=== PATIENT | female | born 1965 | race Caucasian/White ===

== ENCOUNTER 2019-06-11 12:42 | Emergency (ER) | payer OTHER ==
[~2019-06-11] VITALS: Ht 165.1 cm; Wt 60.0 kg
[~2019-06-11 12:42] MED LIST: ALBU8.5H4 IH; CARV3.122 PO; CYCL-1 PO; CYCL-394 PO; LOSA50TA64 PO; SPIR25TA5 PO
[2019-06-11 12:47] VITALS: BP 135/76
[2019-06-11 13:30] LABS: BASOPHILS # (AUTO) 0.1 X10'3 (0-0.2); EOSINOPHILS # (AUTO) 0.1 X10'3 (0-0.9); HEMOGLOBIN 14.6 g/dl (12.0-16.0); WHITE BLOOD COUNT 6.1 X10'3 (4.5-11.0)
[2019-06-11 13:32] LABS: BASOPHILS % (AUTO) 1.4 % (0-1); EOSINOPHILS % (AUTO) 1.7 % (0-6); HEMATOCRIT 43.2 % (35.0-45.0); LYMPHOCYTES # (AUTO) 1.9 X10'3 (1.1-4.8); LYMPHOCYTES % (AUTO) 30.9 % (21-51); MEAN CORPUSCULAR HEMOGLOBIN 32.4 PG (27.0-31.0); MEAN CORPUSCULAR HGB CONC 33.9 g/dL (33.0-36.5); MEAN CORPUSCULAR VOLUME 95.5 FL (78-98); MEAN PLATELET VOLUME 8.1 FL (7.4-10.4); MONOCYTES # (AUTO) 0.7 X10'3 (0-0.9); MONOCYTES % (AUTO) 10.8 % (2-12); NEUTROPHILS # (AUTO) 3.3 X10'3 (1.8-7.7); NEUTROPHILS % (AUTO) 55.2 % (42-75); PLATELET COUNT 326 X10'3 (140-440); RED BLOOD COUNT 4.52 X10'6 (4.20-5.60); RED CELL DISTRIBUTION WIDTH 11.9 % (11.5-14.5)
[2019-06-11 13:53] LABS: ALANINE AMINOTRANSFERASE 80 U/L (12-78); ALBUMIN 3.5 G/DL (3.4-5.0); ALBUMIN/GLOBULIN RATIO 0.8 (1.1-1.5); ALKALINE PHOSPHATASE 101 IU/L (46-116); ANION GAP 7 (8-16); ASPARTATE AMINO TRANSFERASE 65 U/L (10-37); BILIRUBIN,TOTAL 0.5 MG/DL (0.1-1.0); BLOOD UREA NITROGEN 7 MG/DL (7-18); BUN/CREATININE RATIO 10.9 (6.6-38.0); CALCIUM 9.2 MG/DL (8.5-10.1); CHLORIDE 98 MMOL/L (99-107); CREATININE 0.64 MG/DL (0.40-0.90); GLUCOSE 100 MG/DL (70-104); POTASSIUM 3.7 MMOL/L (3.5-5.1); SODIUM 140 MMOL/L (135-145); TOTAL CARBON DIOXIDE 35.1 MMOL/L (24-32); TOTAL PROTEIN 7.7 G/DL (6.4-8.2); eGFR > 90 ML/MIN
[2019-06-11 14:11] LABS: BANDS% (MANUAL) 3 % (0-10); EOSINOPHILS % (MANUAL) 2 % (0-6); IMMATURE CELLS 1 % (0-0); LYMPHOCYTES % (MANUAL) 32 % (21-51); MONOCYTES % (MANUAL) 7 % (2-12); MYELOCYTES % (MANUAL) 1 % (0-0); NEUTROPHILS % (MANUAL) 50 % (42-75); PLATELET ESTIMATE NORMAL; POLYCHROMASIA FEW; STOMATOCYTES 1+; TOTAL CELLS COUNTED 100
[2019-06-11 14:13] LABS: REACTIVE LYMPHOCYTES % 4 % (0-0)
[2019-06-11] MEDS ORDERED: ipratropium/albuterol 3ml nebule NEB ONE (14:50)
[2019-06-11] MEDS ORDERED: predniSONE 20 mg tablet PO ONE (14:50)
[2019-06-11] MEDS ORDERED: LEVO750T21 PO (15:37)
[2019-06-11] MEDS ORDERED: PRED20TA PO (15:37)
[2019-06-11] MEDS ORDERED: benzonatate 100mg capsule PO ONE (15:40)
== END 2019-06-11 15:53 | disposition home or self-care (01) ==
LOC: ER 12:43
DX: J45.909 Unspecified asthma, uncomplicated (principal); R19.7 Diarrhea, unspecified; R42 Dizziness and giddiness; I11.0 Hypertensive heart disease with heart failure; I50.9 Heart failure, unspecified; E78.00 Pure hypercholesterolemia, unspecified; G89.29 Other chronic pain; M79.7 Fibromyalgia; M19.90 Unspecified osteoarthritis, unspecified site; F17.200 Nicotine dependence, unspecified, uncomplicated; F12.90 Cannabis use, unspecified, uncomplicated; Z88.0 Allergy status to penicillin; Z88.1 Allergy status to other antibiotic agents; Z88.8 Allergy status to other drugs, medicaments and biological substances; Z79.899 Other long term (current) drug therapy; Z79.2 Long term (current) use of antibiotics; Z90.710 Acquired absence of both cervix and uterus; Z98.51 Tubal ligation status; Z98.890 Other specified postprocedural states
CPT/HCPCS: 36415; 71046; 80053; 83605; 83880; 84484; 85025; 87040; 87077; 94640; 99284; 99406; J7512; 93005; 94760

== ENCOUNTER 2019-06-23 08:19 | Emergency (ER) | payer OTHER ==
[~2019-06-23] VITALS: Ht 165.1 cm; Wt 61.0 kg
[2019-06-23] MEDS ORDERED: GUAI120L55 PO (09:19)
[2019-06-23] MEDS ORDERED: PRED20TA PO (09:19)
[2019-06-23 09:33] VITALS: BP 136/63
== END 2019-06-23 09:34 | disposition home or self-care (01) ==
LOC: ER 08:19
DX: J44.1 Chronic obstructive pulmonary disease with (acute) exacerbation (principal); I11.0 Hypertensive heart disease with heart failure; I50.9 Heart failure, unspecified; E78.00 Pure hypercholesterolemia, unspecified; G89.29 Other chronic pain; M79.7 Fibromyalgia; M19.90 Unspecified osteoarthritis, unspecified site; F10.10 Alcohol abuse, uncomplicated; F12.90 Cannabis use, unspecified, uncomplicated; F17.210 Nicotine dependence, cigarettes, uncomplicated; Z90.710 Acquired absence of both cervix and uterus; Z98.51 Tubal ligation status; Z98.890 Other specified postprocedural states; Z88.0 Allergy status to penicillin; Z88.1 Allergy status to other antibiotic agents; Z88.8 Allergy status to other drugs, medicaments and biological substances; Z79.899 Other long term (current) drug therapy; Y90.9 Presence of alcohol in blood, level not specified
CPT/HCPCS: 99283

== ENCOUNTER 2021-06-27 10:11 | Emergency (ER) | payer OTHER ==
[~2021-06-27] VITALS: Ht 165.1 cm; Wt 72.0 kg
[~2021-06-27 10:11] MED LIST changes: +GUAI120L55 PO
[2021-06-27 10:19] VITALS: BP 138/91
[2021-06-27] MEDS ORDERED: dexamethasone 4mg tablet PO ONE (10:40)
[2021-06-27] MEDS ORDERED: DEXAMETHASONE 6 MG TABLET PO ONE (10:45)
[2021-06-27] MEDS ORDERED: ondansetron/PF 4mg/2ml inj IV ONE (11:20)
[2021-06-27 11:54] LABS: BASOPHILS # (AUTO) 0.1 X10'3 (0-0.2); EOSINOPHILS # (AUTO) 0.2 X10'3 (0-0.9); MONOCYTES # (AUTO) 0.8 X10'3 (0-0.9); MONOCYTES % (AUTO) 10.1 % (2-12); NEUTROPHILS # (AUTO) 4.3 X10'3 (1.8-7.7); NEUTROPHILS % (AUTO) 57.2 % (42-75)
[2021-06-27 11:57] LABS: BASOPHILS % (AUTO) 1.4 % (0-1); EOSINOPHILS % (AUTO) 2.5 % (0-6); HEMATOCRIT 46.5 % (35.0-45.0); HEMOGLOBIN 15.7 g/dl (12.0-16.0); LYMPHOCYTES # (AUTO) 2.2 X10'3 (1.1-4.8); LYMPHOCYTES % (AUTO) 28.8 % (21-51); MEAN CORPUSCULAR HEMOGLOBIN 34.1 PG (27.0-31.0); MEAN CORPUSCULAR HGB CONC 33.7 g/dL (33.0-36.5); MEAN PLATELET VOLUME 8.3 FL (7.4-10.4); PLATELET COUNT 217 X10'3 (140-440); RED CELL DISTRIBUTION WIDTH 13.9 % (11.5-14.5); WHITE BLOOD COUNT 7.6 X10'3 (4.5-11.0)
[2021-06-27 12:16] LABS: ANION GAP 7 (8-16); BLOOD UREA NITROGEN 5 MG/DL (7-18); BUN/CREATININE RATIO 6.9 (6.6-38.0); CHLORIDE 99 MMOL/L (99-107); CREATININE 0.72 MG/DL (0.40-0.90); GLUCOSE 113 MG/DL (70-104); POTASSIUM 3.9 MMOL/L (3.5-5.1); SODIUM 141 MMOL/L (135-145); TOTAL CARBON DIOXIDE 34.8 MMOL/L (24-32)
[2021-06-27 12:17] LABS: ALANINE AMINOTRANSFERASE 157 U/L (12-78); ALBUMIN 3.5 G/DL (3.4-5.0); ALBUMIN/GLOBULIN RATIO 0.8 (1.1-1.5); ALKALINE PHOSPHATASE 170 IU/L (46-116); ASPARTATE AMINO TRANSFERASE 212 U/L (10-37); BILIRUBIN,TOTAL 0.8 MG/DL (0.1-1.0); CALCIUM 8.8 MG/DL (8.5-10.1); TOTAL PROTEIN 7.9 G/DL (6.4-8.2); eGFR 84 ML/MIN
[2021-06-27] MEDS ORDERED: ipratropium/albuterol 3ml nebule NEB ONE (12:30)
[2021-06-27] MEDS ORDERED: PRED20TA PO ×2 (13:06→13:11)
[2021-06-27] MEDS ORDERED: DOXY100C43 PO ×2 (13:06→13:11)
[2021-06-27] MEDS ORDERED: ALBU18HF2 INH ×2 (13:06→13:11)
[2021-06-27] MEDS ORDERED: ONDA4TAB6 PO ×2 (13:10→13:11)
[2021-06-27] MEDS ORDERED: ondansetron/PF 4mg/2ml inj IM ONE (13:15)
[2021-06-27] MEDS ORDERED: iohexol 350MG/ML 100ml bottle IV ONE (14:05)
== END 2021-06-27 16:02 | disposition home or self-care (01) ==
LOC: ER 10:11
DX: J20.9 Acute bronchitis, unspecified (principal); R05.9 Cough, unspecified; R11.2 Nausea with vomiting, unspecified; Z20.822 Contact with and (suspected) exposure to COVID-19; I11.9 Hypertensive heart disease without heart failure; E78.00 Pure hypercholesterolemia, unspecified; J45.909 Unspecified asthma, uncomplicated; M54.9 Dorsalgia, unspecified; F12.10 Cannabis abuse, uncomplicated
CPT/HCPCS: 36415; 71045; 71275; 74177; 80053; 83880; 84484; 85025; 87635; 93005; 94640; 96372; 96374; 99285; C9803; J2405; Q9967; 94760; J8540

== ENCOUNTER 2021-08-14 08:28 | Outpatient (CLI) | payer OTHER ==
[~2021-08-14] VITALS: Ht 165.1 cm; Wt 70.3 kg
[~2021-08-14 08:28] MED LIST changes: +ALBU18HF2 INH; +DOXY100C43 PO; +ONDA4TAB6 PO; +PRED20TA PO
[2021-08-14] MEDS ORDERED: albuterol 2.5 MG/3 ML nebule NEB PRN (09:20)
== END 2021-08-14 23:59 | disposition home or self-care (01) ==
LOC: RT 08:28
PROVIDERS: ATTEND Family Medicine
DX: J44.9 Chronic obstructive pulmonary disease, unspecified (principal); R06.2 Wheezing; F17.210 Nicotine dependence, cigarettes, uncomplicated; Z79.899 Other long term (current) drug therapy
CPT/HCPCS: 94060; 94760

== ENCOUNTER 2021-08-25 08:28 | Day surgery (SDC) | payer OTHER ==
[2021-08-25] VITALS (8 sets, daily range): BP systolic 119–137; BP diastolic 52–85
[~2021-08-25] VITALS: Ht 166.4 cm; Wt 61.4 kg
[~2021-08-25 08:28] MED LIST changes: +MIDAZolam 1 MG/ML 5ML VIAL ONE; +diphenhydrAMINE 50 mg/ml inj ONE; +fentaNYL/PF 50MCG/1 ML 2ML syringe ONE
[2021-08-25] MEDS ORDERED: CARV25TA2 PO (09:25)
[2021-08-25] MEDS ORDERED: ALBU8HFA PO (09:25)
[2021-08-25] MEDS ORDERED: ONDA-103 PO (09:25)
[2021-08-25] MEDS ORDERED: DESV25TA2 PO (09:25)
[2021-08-25] MEDS ORDERED: HYOS-27 PO (09:25)
[2021-08-25] MEDS ORDERED: LOVA20TA2 PO (09:25)
[2021-08-25] MEDS ORDERED: IPRA3AMP31 PO (09:25)
[2021-08-25] MEDS ORDERED: TRAZ-251 PO (09:25)
[2021-08-25] MEDS ORDERED: FLUT1BLS16 INH (09:25)
[2021-08-25] MEDS ORDERED: PANT40TA54 PO (09:25)
[2021-08-25] MEDS ORDERED: BUDE10.7 (09:25)
== END 2021-08-25 11:55 | disposition home or self-care (01) ==
LOC: GI LAB 08:28
PROVIDERS: ATTEND Internal Medicine Gastroenterology
DX: R19.5 Other fecal abnormalities (principal); R19.7 Diarrhea, unspecified; K57.30 Diverticulosis of large intestine without perforation or abscess without bleeding
CPT/HCPCS: 45380; 99152; J1200; J2250; J3010; J7040; Z7512; A4620

== ENCOUNTER 2021-09-06 11:14 | Inpatient (IN) | payer OTHER ==
[~2021-09-06] VITALS: Ht 165.1 cm; Wt 77.5 kg
[~2021-09-06 11:14] MED LIST changes: -ALBU18HF2 INH; -ALBU8.5H4 IH; +ALBU8HFA PO; +BUDE10.7 PO; +CARV25TA2 PO; -CARV3.122 PO; -CYCL-1 PO; -CYCL-394 PO; +DESV25TA2 PO; -DOXY100C43 PO; +FLUT1BLS16 INH; -GUAI120L55 PO; +HYOS-27 PO; +IPRA3AMP31 PO; -LOSA50TA64 PO; +LOVA20TA2 PO; -MIDAZolam 1 MG/ML 5ML VIAL ONE; +ONDA-103 PO; -ONDA4TAB6 PO; +PANT40TA54 PO; -PRED20TA PO; -SPIR25TA5 PO; +TRAZ-251 PO; +atropine 0.1mg/ml 10ml syringe ONE; -diphenhydrAMINE 50 mg/ml inj ONE; +epiNEPHrine 0.1mg/ml 10ml syringe ONE; -fentaNYL/PF 50MCG/1 ML 2ML syringe ONE
[2021-09-06] MEDS ORDERED: normal saline 1000ML IV soln IV ONE (11:25)
[2021-09-06 12:03] LABS: BASOPHILS # (AUTO) 0.1 X10'3 (0-0.2); BASOPHILS % (AUTO) 0.5 % (0-1); HEMOGLOBIN 13.6 g/dl (12.0-16.0); MEAN PLATELET VOLUME 8.7 FL (7.4-10.4); RED BLOOD COUNT 4.15 X10'6 (4.20-5.60)
[2021-09-06 12:05] LABS: EOSINOPHILS # (AUTO) 0.2 X10'3 (0-0.9); HEMATOCRIT 41.1 % (35.0-45.0); LYMPHOCYTES # (AUTO) 1.7 X10'3 (1.1-4.8); LYMPHOCYTES % (AUTO) 7.3 % (21-51); MEAN CORPUSCULAR HEMOGLOBIN 32.7 PG (27.0-31.0); MEAN CORPUSCULAR HGB CONC 33.1 g/dL (33.0-36.5); MEAN CORPUSCULAR VOLUME 98.8 FL (78-98); MONOCYTES # (AUTO) 0.7 X10'3 (0-0.9); MONOCYTES % (AUTO) 3.1 % (2-12); NEUTROPHILS % (AUTO) 88.1 % (42-75); PLATELET COUNT 353 X10'3 (140-440); RED CELL DISTRIBUTION WIDTH 15.8 % (11.5-14.5); WHITE BLOOD COUNT 23.8 X10'3 (4.5-11.0)
[2021-09-06 12:22] LABS: ALANINE AMINOTRANSFERASE 113 U/L (12-78); ALBUMIN 2.4 G/DL (3.4-5.0); ALBUMIN/GLOBULIN RATIO 0.7 (1.1-1.5); ALKALINE PHOSPHATASE 284 IU/L (46-116); ANION GAP 15 (8-16); ASPARTATE AMINO TRANSFERASE 260 U/L (10-37); BILIRUBIN,TOTAL 2.3 MG/DL (0.1-1.0); BLOOD UREA NITROGEN 12 MG/DL (7-18); BUN/CREATININE RATIO 18.5 (6.6-38.0); CALCIUM 6.2 MG/DL (8.5-10.1); CHLORIDE 106 MMOL/L (99-107); CREATININE 0.65 MG/DL (0.40-0.90); ETHANOL < 0.010 GM/DL (0.0-0.010); GLUCOSE 114 MG/DL (70-104); SODIUM 152 MMOL/L (135-145); TOTAL CARBON DIOXIDE 31.5 MMOL/L (24-32); TOTAL PROTEIN 5.8 G/DL (6.4-8.2); eGFR > 90 ML/MIN
[2021-09-06] MEDS ORDERED: potassium Cl 10 mEq/100mL bag IV ONE (12:30)
[2021-09-06 12:33] LABS: CLARITY,URINE CLOUDY (Clear)
[2021-09-06 12:39] LABS: UA COLLECTION TYPE STRAIGHT CATH
[2021-09-06 12:40] LABS: COLOR,URINE AMBER (Yellow)
[2021-09-06 12:44] LABS: BACTERIA,URINE 4+ /HPF (Neg); WBC,URINE TNTC /HPF (0-4)
[2021-09-06 12:45] LABS: MUCUS STRANDS NONE SEEN /LPF (Neg); SQUAMOUS EPITHELIAL CELL,UR MANY /LPF (FEW); WBC CLUMPS,URINE MANY /HPF (NEGATIVE)
[2021-09-06] MEDS ORDERED: CefTRIAXone 2gm/D5W 50ml BAG 50 ML IV ONE (12:50)
--- NOTE | 2021-09-06 12:50 | NUR ---
PT NEGATIVE FOR COVID NOTIFIED THE FAMILY ,DAUGHTER ALLOWED TO COME SEE THE PT .
[2021-09-06 12:53] LABS: URINE AMPHETAMINE SCREEN NEGATIVE (Neg); URINE BARBITUATE SCREEN NEGATIVE (Neg); URINE BENZODIAZEPINES SCREEN POSITIVE (Neg); URINE CANNABINOID SCREEN NEGATIVE (Neg); URINE COCAINE SCREEN NEGATIVE (Neg); URINE METHADONE SCREEN NEGATIVE (Neg); URINE OPIATE SCREEN NEGATIVE (Neg); URINE PHENCYCLIDINE SCREEN NEGATIVE (Neg)
--- NOTE | 2021-09-06 13:04 | NUR ---
TO CT SCAN.
[2021-09-06] MEDS ORDERED: potassium Cl 20 mEq SR tablet PO STA (13:44)
[2021-09-06] MEDS ORDERED: lactulose 20gm/30ml cup PO ONE (13:45)
[2021-09-06] MEDS ORDERED: NITR0.4T48 SL (14:03)
[2021-09-06] MEDS ORDERED: ipratropium/albuterol 3ml nebule NEB PRN (14:30)
[2021-09-06] MEDS ORDERED: potassium Cl 20 mEq SR tablet PO PRN (14:35)
[2021-09-06] MEDS ORDERED: mag hydrox/Alum hydrox/simeth 30ml oral suspension PO PRN (14:35)
[2021-09-06] MEDS ORDERED: magnesium 4gm in 100ml NS 100 ML IV PRN (14:35)
[2021-09-06] MEDS ORDERED: magnesium hydroxide 30ml (MOM) UD suspension PO PRN (14:35)
[2021-09-06] MEDS ORDERED: ondansetron/PF 4mg/2ml inj IV PRN (14:35)
[2021-09-06] MEDS ORDERED: bisacodyl 10mg suppository rectal RC PRN (14:35)
[2021-09-06] MEDS ORDERED: morphine 2 MG/ML inj. syringe IV PRN (14:35)
[2021-09-06] MEDS ORDERED: acetaminophen 325mg tablet PO PRN (14:35)
[2021-09-06] MEDS ORDERED: haloperidol lactate 5mg/ml inj IM PRN (14:35)
[2021-09-06] MEDS ORDERED: LORazepam 2 mg/ml vial IV PRN (14:35)
[2021-09-06] MEDS ORDERED: diphenhydrAMINE 25mg capsule PO PRN (14:35)
[2021-09-06] MEDS ORDERED: dextrose 50%-water 50ml dispensing syringe IV PRN (14:35)
[2021-09-06] MEDS ORDERED: HYDROcodone/acetaminophen 5mg/325mg tablet PO PRN (14:35)
[2021-09-06] MEDS ORDERED: HYDROcodone/acetaminophen 10/325mg tab PO PRN (14:35)
[2021-09-06] MEDS ORDERED: acetaminophen 650mg rectal suppository RC PRN (14:35)
[2021-09-06] MEDS ORDERED: vancomycin/NS 1 GM ADD-VANTAGE 250 ML IV ONE (15:00)
[2021-09-06 15:22] LABS: HEMOGLOBIN A1C 6.2 % (4.5-6.2)
[2021-09-06] MEDS: metroNIDAZOLE-Flagyl 500mg/NS 100 ML IV SCH (16:05)
[2021-09-06] MEDS: normal saline 1000ml 1,000 ML IV SCH ×2 (16:05→19:51)
[2021-09-06 17:48] VITALS: BP 152/73
--- NOTE | 2021-09-06 18:45 | NUR ---
Received pt in bed awake and alert. Pt is confused and feel frustrated. at bedside trying to reorient pt. Bilateral upper extremities are shaking . Plan of care verbalized to pt and family. Head of bed elevated .
--- NOTE | 2021-09-06 19:10 | NUR ---
Charge nurse made aware of pt condition and I let her know that the pt should not have been admitted on this floor.
--- NOTE | 2021-09-06 19:30 | NUR ---
went home, pt was not able to give information for the admissions intervention. Scheduled medication given.
[2021-09-06] MEDS: docusate sod 100mg capsule PO SCH (19:39)
[2021-09-06] MEDS: heparin, porcine 5000 units/ml vial SQ SCH (19:44)
[2021-09-06] MEDS: lactulose 20gm/30ml cup PO SCH (19:44)
[2021-09-06 20:27] LABS: LIPASE 318 U/L (73-393); MAGNESIUM 1.4 MG/DL (1.5-2.4)
--- NOTE | 2021-09-06 20:28 | NUR ---
Pt off the floor to CT, muscle weakness with shakiness on hand and feet noted. pt has no coordination and unable to grasp on.
[2021-09-06 20:58] VITALS: BP 131/90
[2021-09-06] MEDS ORDERED: propofol 1000mg/100ml bottle 100 ML IV PRN ×2 (21:05→21:16)
[2021-09-06] MEDS ORDERED: midazolam 100mg in NS 100ml 100 ML IV PRN (21:05)
[2021-09-06 21:15] LABS: ABG BASE EXCESS -11.4 mmol/L (-2.0-2.0); ABG HCO3 18.7 mmol/L (22.0-26.0); ABG OXYGEN SATURATION 98.7 % (94-97); ABG PCO2 (T) 60.6 mmHg (32.0-45.0); ABG PO2 (T) 201.4 mmHg (75.0-100.0); ALLEN'S TEST POSITIVE; FCOHb 0.3 % (0.0-3.9); FMetHb 0.4 % (0.0-1.5); PATIENT TEMPERATURE 37.1; PEEP 5 cm H2O; RESPIRATORY RATE 20 b/min; TIDAL VOLUME 400 mL; TOTAL HEMOGLOBIN 14.2 G/dl (12.0-16.0)
[2021-09-06] MEDS: ipratropium/albuterol 3ml nebule NEB SCH (21:18)
--- NOTE | 2021-09-06 21:20 | NUR ---
Pt transferred to ICU post code.
--- NOTE | 2021-09-06 21:45 | NUR ---
Patient transferred from ER after code blue. Report received from Mary OTT. Patient intubated, wakes up spontaneously and opens eyes but does not follow commands or make purposeful movement. Vitals currently stable, vent settings A/C VC at 60% FIO2, RR 22. Will continue to monitor, waiting for tele doc to round.
[2021-09-06] MEDS: Budesonide/Glycopyr/Formoterol (Breztri Aerosphere Inhaler) IH SCH (21:57)
[2021-09-06] MEDS: K and/or MAG REPLACEMENT MC SCH (21:57)
[2021-09-06 22:00] VITALS: BP 114/91
[2021-09-06 22:20] LABS: BASOPHILS # (AUTO) 0.2 X10'3 (0-0.2); EOSINOPHILS # (AUTO) 0.3 X10'3 (0-0.9); EOSINOPHILS % (AUTO) 1.5 % (0-6); HEMATOCRIT 38.3 % (35.0-45.0); HEMOGLOBIN 12.5 g/dl (12.0-16.0); LYMPHOCYTES # (AUTO) 1.6 X10'3 (1.1-4.8); LYMPHOCYTES % (AUTO) 7.8 % (21-51); MEAN CORPUSCULAR HEMOGLOBIN 33.2 PG (27.0-31.0); MEAN CORPUSCULAR HGB CONC 32.7 g/dL (33.0-36.5); MEAN CORPUSCULAR VOLUME 101.4 FL (78-98); MONOCYTES # (AUTO) 0.7 X10'3 (0-0.9); MONOCYTES % (AUTO) 3.2 % (2-12); NEUTROPHILS # (AUTO) 17.9 X10'3 (1.8-7.7); NEUTROPHILS % (AUTO) 86.5 % (42-75); PLATELET COUNT 325 X10'3 (140-440); RED BLOOD COUNT 3.78 X10'6 (4.20-5.60); RED CELL DISTRIBUTION WIDTH 16.4 % (11.5-14.5); WHITE BLOOD COUNT 20.7 X10'3 (4.5-11.0)
[2021-09-06 22:42] LABS: ANISOCYTOSIS 1+; PLATELET ESTIMATE NORMAL; POLYCHROMASIA FEW; STOMATOCYTES FEW; TOTAL CELLS COUNTED 100
[2021-09-06] MEDS: dexmedetomidine/D5W 100mL 100 ML IV SCH (22:46)
[2021-09-06] MEDS: ringers solution, lacted 1,000 ML IV SCH (22:53)
[2021-09-06] MEDS: thiamine 100mg/ml 2ml inj. IV SCH (22:56)
[2021-09-06 23:00] VITALS: BP 106/66
[2021-09-06 23:11] VITALS: BP 116/77
[2021-09-06 23:21] LABS: ALANINE AMINOTRANSFERASE 108 U/L (12-78); ALBUMIN 2.1 G/DL (3.4-5.0); ALBUMIN/GLOBULIN RATIO 0.6 (1.1-1.5); ALKALINE PHOSPHATASE 289 IU/L (46-116); ANION GAP 18 (8-16); ASPARTATE AMINO TRANSFERASE 279 U/L (10-37); BILIRUBIN,TOTAL 1.6 MG/DL (0.1-1.0); BLOOD UREA NITROGEN 14 MG/DL (7-18); BUN/CREATININE RATIO 13.7 (6.6-38.0); CHLORIDE 115 MMOL/L (99-107); CREATININE 1.02 MG/DL (0.40-0.90); GLUCOSE 157 MG/DL (70-104); POTASSIUM 3.2 MMOL/L (3.5-5.1); SODIUM 154 MMOL/L (135-145); TOTAL CARBON DIOXIDE 21.2 MMOL/L (24-32); TOTAL PROTEIN 5.9 G/DL (6.4-8.2); eGFR 56 ML/MIN
[2021-09-06 23:29] LABS: CALCIUM 5.8 MG/DL (8.5-10.1)
[2021-09-07] VITALS (29 sets, daily range): BP systolic 85–129; BP diastolic 47–96
[2021-09-07] MEDS ORDERED: normal saline 500ml IV soln 500 ML IV ONE (00:50)
[2021-09-07] MEDS: metroNIDAZOLE-Flagyl 500mg/NS 100 ML IV SCH ×3 (00:53→15:08)
[2021-09-07 01:56] LABS: CLARITY,URINE CLOUDY (Clear); COLOR,URINE YELLOW (Yellow); GLUCOSE, URINE 100 mg/dl (Neg); KETONES,URINE 15 mg/dl (Neg); LEUKOCYTE ESTERASE ,URINE MODERATE (Neg); NITRITES, URINE NEGATIVE (Neg); OCCULT BLOOD,URINE LARGE (Neg); PH,URINE 5.5 (4.8-8.0); PROTEIN,URINE 100 mg/dl (Neg)
[2021-09-07] MEDS: potassium CL 10mEq/100ml bag 100 ML IV PRN ×4 (01:59→09:01)
[2021-09-07 02:13] LABS: UA COLLECTION TYPE NON-SPECIFIED
[2021-09-07 02:15] LABS: BACTERIA,URINE FEW /HPF (Neg); SQUAMOUS EPITHELIAL CELL,UR FEW /LPF (FEW)
[2021-09-07 02:16] LABS: RBC,URINE 20-50 /HPF (0-2)
[2021-09-07] MEDS: lactulose 20gm/30ml cup PO SCH ×4 (02:56→19:36)
[2021-09-07] MEDS: VANCOMYCIN 1GM/200ML IVPB 200 ML IV SCH ×2 (02:56→17:13)
[2021-09-07] MEDS: ipratropium/albuterol 3ml nebule NEB SCH ×4 (02:59→20:24)
[2021-09-07 03:16] LABS: ABG BASE EXCESS 1.7 mmol/L (-2.0-2.0); ABG HCO3 25.2 mmol/L (22.0-26.0); ABG OXYGEN SATURATION 98.6 % (94-97); ABG PCO2 (T) 36.9 mmHg (32.0-45.0); ABG PO2 (T) 154.6 mmHg (75.0-100.0); ALLEN'S TEST POSITIVE; FCOHb 0.3 % (0.0-3.9); FMetHb 0.3 % (0.0-1.5); PATIENT TEMPERATURE 37.7; PEEP 5 cm H2O; RESPIRATORY RATE 22 b/min; TIDAL VOLUME 400 mL; TOTAL HEMOGLOBIN 12.4 G/dl (12.0-16.0)
[2021-09-07 05:08] LABS: BASOPHILS # (AUTO) 0.2 X10'3 (0-0.2); EOSINOPHILS # (AUTO) 0.2 X10'3 (0-0.9); EOSINOPHILS % (AUTO) 1.5 % (0-6); HEMATOCRIT 34.5 % (35.0-45.0); HEMOGLOBIN 11.1 g/dl (12.0-16.0); LYMPHOCYTES # (AUTO) 1.9 X10'3 (1.1-4.8); LYMPHOCYTES % (AUTO) 11.9 % (21-51); MEAN CORPUSCULAR HEMOGLOBIN 32.4 PG (27.0-31.0); MEAN CORPUSCULAR HGB CONC 32.1 g/dL (33.0-36.5); MEAN CORPUSCULAR VOLUME 101.1 FL (78-98); MEAN PLATELET VOLUME 10.1 FL (7.4-10.4); MONOCYTES # (AUTO) 0.6 X10'3 (0-0.9); MONOCYTES % (AUTO) 3.6 % (2-12); NEUTROPHILS # (AUTO) 12.8 X10'3 (1.8-7.7); PLATELET COUNT 235 X10'3 (140-440); RED BLOOD COUNT 3.42 X10'6 (4.20-5.60); RED CELL DISTRIBUTION WIDTH 16.7 % (11.5-14.5); WHITE BLOOD COUNT 15.6 X10'3 (4.5-11.0)
[2021-09-07] MEDS: dexmedetomidine/D5W 100mL 100 ML IV SCH (05:50)
--- NOTE | 2021-09-07 06:20 | NUR ---
Problems reprioritized. Patient report given, questions answered & plan of care reviewed with Zulema OTT.
--- NOTE | 2021-09-07 06:38 | NUR ---
Patient in room ICU 2040. I have received report from Jodie OTT and had the opportunity to ask questions and assume patient care.
[2021-09-07] MEDS ORDERED: pantoprazole 40mg Tablet.DR PO SCH (07:30)
[2021-09-07] MEDS: heparin, porcine 5000 units/ml vial SQ SCH ×2 (07:36→19:38)
[2021-09-07] MEDS: DESVENLAFAXINE SUCCINATE PO SCH (07:55)
[2021-09-07] MEDS: docusate sod 100mg capsule PO SCH ×2 (07:55→20:00)
[2021-09-07] MEDS ORDERED: folic acid 1mg/0.2ml inj IV SCH (08:00)
[2021-09-07] MEDS: thiamine 100mg/ml 2ml inj. IV SCH ×3 (08:00→19:38)
[2021-09-07] MEDS ORDERED: atorvastatin 10mg tablet PO SCH (08:00)
[2021-09-07] MEDS: Budesonide/Glycopyr/Formoterol (Breztri Aerosphere Inhaler) IH SCH ×2 (08:00→20:00)
[2021-09-07] MEDS: folic acid 1mg/0.2ml inj IV SCH (08:00)
[2021-09-07] MEDS ORDERED: thiamine 100mg/ml 2ml inj. IM SCH (08:00)
[2021-09-07] MEDS: K and/or MAG REPLACEMENT MC SCH ×2 (08:00→19:38)
[2021-09-07 08:10] LABS: ALANINE AMINOTRANSFERASE 89 U/L (12-78); ALBUMIN 1.9 G/DL (3.4-5.0); ALBUMIN/GLOBULIN RATIO 0.8 (1.1-1.5); ALKALINE PHOSPHATASE 223 IU/L (46-116); ANION GAP 14 (8-16); ASPARTATE AMINO TRANSFERASE 190 U/L (10-37); BILIRUBIN,TOTAL 1.3 MG/DL (0.1-1.0); BLOOD UREA NITROGEN 13 MG/DL (7-18); BUN/CREATININE RATIO 17.1 (6.6-38.0); CHLORIDE 118 MMOL/L (99-107); CHOL/HDL RATIO 8.9 (0.00-4.99); CHOLESTEROL 142 MG/DL (0-200); CREATININE 0.76 MG/DL (0.40-0.90); GLUCOSE 98 MG/DL (70-104); HDL CHOLESTEROL 16 MG/DL (35-60); LDL CHOLESTEROL 91 MG/DL (50-100); MAGNESIUM 1.4 MG/DL (1.5-2.4); PHOSPHORUS 3.3 MG/DL (2.3-4.5); POTASSIUM 3.4 MMOL/L (3.5-5.1); TOTAL CARBON DIOXIDE 26.1 MMOL/L (24-32); TOTAL PROTEIN 4.4 G/DL (6.4-8.2); TRIGLYCERIDES 240 MG/DL (20-135); eGFR 79 ML/MIN
[2021-09-07 08:15] LABS: CALCIUM 5.5 MG/DL (8.5-10.1); SODIUM 158 MMOL/L (135-145)
[2021-09-07] MEDS: ringers solution, lacted 1,000 ML IV SCH ×4 (08:15→20:42)
[2021-09-07] MEDS ORDERED: dextrose 5%-1/2 normal saline 1,000 ML IV SCH (09:25)
[2021-09-07] MEDS ORDERED: ringers solution, lacted 1,000 ML IV ONE (10:20)
[2021-09-07] MEDS: CefTRIAXone/D5W-Rocephin 1gm 50 ML IV SCH (10:32)
[2021-09-07] MEDS ORDERED: CALCIUM GLUC 1gm/50ml NACL,iso 100 ML IV ONE (11:35)
[2021-09-07 12:16] LABS: HIV ANTIBODY 1&2 RAPID NON-REACTIVE (Neg)
--- NOTE | 2021-09-07 12:26 | NUR ---
Initial: Pt admit dx encephalopathy, sepsis, UTI, colitis, and hyperlipidemia per EMR. PO intake 25% of one heart healthy meal. Pt s/p cardiac arrest and intubated 09/06. Pt to be extubated 09/07 per MD order. Recommend continue on heart healthy diet post-extubation, pending further PO trends. Noted Vinny score of 11. Pt w/ open skin to coccyx per RN skin assessment, WOC pending. LBM 09/06, receiving routine bowel care. Will continue to monitor. Recommendations: 1. Continue heart healthy diet as tolerated, pending extubation 2. Encourage PO intake, monitor need for additional protein/ONS 3. Routine bowel care 4. Weekly scaled wt Addendum: 09/07/21 at [address] Amended: Links added. Addendum: 09/07/21 at [address] I have reviewed assessment by architect internship
[2021-09-07] MEDS: pantoprazole 40MG/NS 100ML BAG 100 ML IV SCH ×2 (13:42→19:37)
[2021-09-07] MEDS: magnesium Cl slow-release 64mg tablet PO PRN ×2 (14:39→19:41)
--- NOTE | 2021-09-07 15:13 | NUR ---
and daughter at bedside, gave rings that were taken off pt to Franky to take home. Pt and daughter aware.
--- NOTE | 2021-09-07 17:06 | NUR ---
Student Medication Administration: For this medication-pass time frame, all medication were reviewed, dispensed, administered and documented per hospital policy by Angelica Student Nurse. Student documentation: I have reviewed and agree with all interventions, assessments performed and documented by [facility] Student Nurse.
--- NOTE | 2021-09-07 18:20 | NUR ---
Patient in room ICU 2040. I have received report from Zulema OTT and had the opportunity to ask questions and assume patient care.
--- NOTE | 2021-09-07 18:27 | NUR ---
Problems reprioritized. Patient report given, questions answered & plan of care reviewed with Jodie OTT.
[2021-09-07] MEDS: acetaminophen 325mg tablet PO PRN (19:36)
[2021-09-08] VITALS (23 sets, daily range): BP systolic 99–148; BP diastolic 51–94
[2021-09-08] MEDS: metroNIDAZOLE-Flagyl 500mg/NS 100 ML IV SCH ×4 (00:08→23:22)
[2021-09-08] MEDS: dexmedetomidine/D5W 100mL 100 ML IV SCH ×3 (00:27→23:21)
[2021-09-08] MEDS: lactulose 20gm/30ml cup PO SCH ×4 (01:44→20:39)
[2021-09-08] MEDS: LORazepam 2 mg/ml vial IV PRN ×3 (01:49→20:36)
[2021-09-08] MEDS ORDERED: VANCOMYCIN LEVEL IV ONE (02:30)
[2021-09-08] MEDS: mineral oil/petrolatum ophthal oint EACHEYE SCH ×5 (03:19→20:40)
[2021-09-08] MEDS: VANCOMYCIN 1GM/200ML IVPB 200 ML IV SCH (03:43)
[2021-09-08 03:50] LABS: BASOPHILS % (AUTO) 0.1 % (0-1); EOSINOPHILS # (AUTO) 0.5 X10'3 (0-0.9); EOSINOPHILS % (AUTO) 2.6 % (0-6); HEMATOCRIT 33.6 % (35.0-45.0); LYMPHOCYTES # (AUTO) 2.1 X10'3 (1.1-4.8); LYMPHOCYTES % (AUTO) 11.9 % (21-51); MEAN CORPUSCULAR HEMOGLOBIN 32.8 PG (27.0-31.0); MEAN CORPUSCULAR HGB CONC 32.7 g/dL (33.0-36.5); MEAN CORPUSCULAR VOLUME 100.2 FL (78-98); MEAN PLATELET VOLUME 9.6 FL (7.4-10.4); MONOCYTES # (AUTO) 0.8 X10'3 (0-0.9); MONOCYTES % (AUTO) 4.3 % (2-12); NEUTROPHILS # (AUTO) 14.4 X10'3 (1.8-7.7); NEUTROPHILS % (AUTO) 81.1 % (42-75); PLATELET COUNT 255 X10'3 (140-440); RED BLOOD COUNT 3.36 X10'6 (4.20-5.60); RED CELL DISTRIBUTION WIDTH 16.1 % (11.5-14.5); WHITE BLOOD COUNT 17.8 X10'3 (4.5-11.0)
[2021-09-08 04:00] LABS: ALANINE AMINOTRANSFERASE 63 U/L (12-78); ALBUMIN 1.9 G/DL (3.4-5.0); ALBUMIN/GLOBULIN RATIO 0.7 (1.1-1.5); ALKALINE PHOSPHATASE 240 IU/L (46-116); ANION GAP 10 (8-16); ASPARTATE AMINO TRANSFERASE 131 U/L (10-37); BILIRUBIN,TOTAL 0.9 MG/DL (0.1-1.0); BLOOD UREA NITROGEN 9 MG/DL (7-18); BUN/CREATININE RATIO 11.1 (6.6-38.0); CALCIUM 6.2 MG/DL (8.5-10.1); CHLORIDE 119 MMOL/L (99-107); CREATININE 0.81 MG/DL (0.40-0.90); GLUCOSE 117 MG/DL (70-104); MAGNESIUM 1.1 MG/DL (1.5-2.4); SODIUM 154 MMOL/L (135-145); TOTAL CARBON DIOXIDE 25.4 MMOL/L (24-32); TOTAL PROTEIN 4.5 G/DL (6.4-8.2); eGFR 74 ML/MIN
[2021-09-08] MEDS: ipratropium/albuterol 3ml nebule NEB SCH ×4 (04:08→19:32)
[2021-09-08] MEDS: potassium Cl 20 mEq SR tablet PO PRN ×2 (04:58→15:29)
[2021-09-08] MEDS: magnesium Cl slow-release 64mg tablet PO PRN (04:58)
[2021-09-08] MEDS: haloperidol 5mg tablet PO PRN ×2 (04:58→21:28)
--- NOTE | 2021-09-08 06:31 | NUR ---
Problems reprioritized. Patient report given, questions answered & plan of care reviewed with Maira OTT.
[2021-09-08] MEDS: carVEDilol 12.5mg tablet PO SCH ×2 (07:30→16:50)
[2021-09-08] MEDS: Budesonide/Glycopyr/Formoterol (Breztri Aerosphere Inhaler) IH SCH ×2 (07:50→19:33)
[2021-09-08] MEDS: DESVENLAFAXINE SUCCINATE PO SCH (07:51)
[2021-09-08] MEDS: ringers solution, lacted 1,000 ML IV SCH ×2 (07:58→18:08)
[2021-09-08] MEDS: K and/or MAG REPLACEMENT MC SCH ×2 (08:00→20:00)
[2021-09-08] MEDS: folic acid 1mg/0.2ml inj IV SCH (08:00)
[2021-09-08] MEDS: pantoprazole 40MG/NS 100ML BAG 100 ML IV SCH ×2 (08:23→20:40)
[2021-09-08] MEDS: CefTRIAXone/D5W-Rocephin 1gm 50 ML IV SCH (08:23)
[2021-09-08] MEDS: heparin, porcine 5000 units/ml vial SQ SCH ×2 (08:24→20:39)
[2021-09-08] MEDS: thiamine 100mg/ml 2ml inj. IV SCH ×3 (08:24→20:39)
[2021-09-08] MEDS: docusate sod 100mg capsule PO SCH ×2 (08:24→20:00)
[2021-09-08] MEDS: potassium CL 10mEq/100ml bag 100 ML IV PRN ×3 (09:58→15:13)
[2021-09-08] MEDS: magnesium 2GM in 50ml NS 50 ML IV PRN (09:59)
[2021-09-08 10:15] LABS: HBSAG SCREEN Negative (Negative); HEP A AB, IGM Negative (Negative); HEPATITIS C ANTIBODY <0.1 s/co ratio (0.0-0.9)
[2021-09-08] MEDS: morphine 2 MG/ML inj. syringe IV PRN (11:29)
[2021-09-08] MEDS ORDERED: potassium phosphate inj 15 MMOL in NS 250ml IV soln 250 ML IV ONE (12:15)
[2021-09-08 14:35] LABS: MAGNESIUM 1.5 MG/DL (1.5-2.4); POTASSIUM 3.1 MMOL/L (3.5-5.1)
[2021-09-08] MEDS ORDERED: LORazepam 1 MG tablet PO PRN (14:35)
[2021-09-08] MEDS ORDERED: VANCOmycin 1250MG/NS 250ml Bag 250 ML IV SCH (15:00)
[2021-09-08 19:48] LABS: BASOPHILS # (AUTO) 0.2 X10'3 (0-0.2); BASOPHILS % (AUTO) 1.3 % (0-1); EOSINOPHILS # (AUTO) 0.4 X10'3 (0-0.9); EOSINOPHILS % (AUTO) 2.4 % (0-6); HEMATOCRIT 33.8 % (35.0-45.0); HEMOGLOBIN 10.9 g/dl (12.0-16.0); LYMPHOCYTES % (AUTO) 11.9 % (21-51); MEAN CORPUSCULAR HEMOGLOBIN 32.7 PG (27.0-31.0); MEAN CORPUSCULAR HGB CONC 32.4 g/dL (33.0-36.5); MEAN CORPUSCULAR VOLUME 100.9 FL (78-98); MEAN PLATELET VOLUME 9.4 FL (7.4-10.4); MONOCYTES # (AUTO) 0.9 X10'3 (0-0.9); MONOCYTES % (AUTO) 5.6 % (2-12); NEUTROPHILS # (AUTO) 13.2 X10'3 (1.8-7.7); NEUTROPHILS % (AUTO) 78.8 % (42-75); PLATELET COUNT 226 X10'3 (140-440); RED BLOOD COUNT 3.35 X10'6 (4.20-5.60); RED CELL DISTRIBUTION WIDTH 16.3 % (11.5-14.5); WHITE BLOOD COUNT 16.7 X10'3 (4.5-11.0)
[2021-09-08 20:03] LABS: ALANINE AMINOTRANSFERASE 61 U/L (12-78); ALBUMIN 1.9 G/DL (3.4-5.0); ALBUMIN/GLOBULIN RATIO 0.8 (1.1-1.5); ALKALINE PHOSPHATASE 249 IU/L (46-116); ANION GAP 10 (8-16); ASPARTATE AMINO TRANSFERASE 104 U/L (10-37); BILIRUBIN,TOTAL 0.9 MG/DL (0.1-1.0); BLOOD UREA NITROGEN 5 MG/DL (7-18); BUN/CREATININE RATIO 6.9 (6.6-38.0); CALCIUM 6.2 MG/DL (8.5-10.1); CHLORIDE 119 MMOL/L (99-107); CREATININE 0.72 MG/DL (0.40-0.90); GLUCOSE 122 MG/DL (70-104); MAGNESIUM 1.5 MG/DL (1.5-2.4); PHOSPHORUS 2.7 MG/DL (2.3-4.5); POTASSIUM 3.8 MMOL/L (3.5-5.1); SODIUM 152 MMOL/L (135-145); TOTAL CARBON DIOXIDE 23.2 MMOL/L (24-32); TOTAL PROTEIN 4.4 G/DL (6.4-8.2); eGFR 84 ML/MIN
[2021-09-09] VITALS (19 sets, daily range): BP systolic 89–142; BP diastolic 52–90
[2021-09-09] MEDS: lactulose 20gm/30ml cup PO SCH ×4 (01:22→20:26)
[2021-09-09] MEDS: mineral oil/petrolatum ophthal oint EACHEYE SCH ×2 (01:22→08:00)
[2021-09-09] MEDS: ringers solution, lacted 1,000 ML IV SCH ×3 (02:05→17:59)
[2021-09-09] MEDS: ipratropium/albuterol 3ml nebule NEB SCH ×4 (03:04→20:03)
[2021-09-09] MEDS: dexmedetomidine/D5W 100mL 100 ML IV SCH (04:22)
[2021-09-09 06:10] LABS: BASOPHILS # (AUTO) 0.2 X10'3 (0-0.2); BASOPHILS % (AUTO) 1.1 % (0-1); EOSINOPHILS # (AUTO) 0.4 X10'3 (0-0.9); HEMATOCRIT 32.8 % (35.0-45.0); HEMOGLOBIN 10.8 g/dl (12.0-16.0); LYMPHOCYTES # (AUTO) 1.8 X10'3 (1.1-4.8); LYMPHOCYTES % (AUTO) 13.3 % (21-51); MEAN CORPUSCULAR HEMOGLOBIN 32.8 PG (27.0-31.0); MEAN CORPUSCULAR HGB CONC 32.9 g/dL (33.0-36.5); MEAN CORPUSCULAR VOLUME 99.7 FL (78-98); MEAN PLATELET VOLUME 9.9 FL (7.4-10.4); MONOCYTES # (AUTO) 0.7 X10'3 (0-0.9); MONOCYTES % (AUTO) 5.5 % (2-12); NEUTROPHILS # (AUTO) 10.3 X10'3 (1.8-7.7); NEUTROPHILS % (AUTO) 77.1 % (42-75); PLATELET COUNT 214 X10'3 (140-440); RED BLOOD COUNT 3.29 X10'6 (4.20-5.60); RED CELL DISTRIBUTION WIDTH 16.2 % (11.5-14.5); WHITE BLOOD COUNT 13.3 X10'3 (4.5-11.0)
--- NOTE | 2021-09-09 06:18 | NUR ---
Problems reprioritized. Patient report given, questions answered & plan of care reviewed with Williams RN
[2021-09-09 06:30] LABS: ALANINE AMINOTRANSFERASE 48 U/L (12-78); ALBUMIN 1.7 G/DL (3.4-5.0); ALBUMIN/GLOBULIN RATIO 0.7 (1.1-1.5); ALKALINE PHOSPHATASE 222 IU/L (46-116); ANION GAP 4 (8-16); ASPARTATE AMINO TRANSFERASE 84 U/L (10-37); BILIRUBIN,TOTAL 0.8 MG/DL (0.1-1.0); BLOOD UREA NITROGEN 5 MG/DL (7-18); BUN/CREATININE RATIO 7.5 (6.6-38.0); CALCIUM 6.1 MG/DL (8.5-10.1); CHLORIDE 119 MMOL/L (99-107); CREATININE 0.67 MG/DL (0.40-0.90); GLUCOSE 124 MG/DL (70-104); MAGNESIUM 1.3 MG/DL (1.5-2.4); PHOSPHORUS 2.5 MG/DL (2.3-4.5); POTASSIUM 3.3 MMOL/L (3.5-5.1); SODIUM 148 MMOL/L (135-145); eGFR > 90 ML/MIN
[2021-09-09] MEDS: potassium CL 10mEq/100ml bag 100 ML IV PRN ×3 (06:45→10:55)
[2021-09-09] MEDS: magnesium 2GM in 50ml NS 50 ML IV PRN ×2 (06:45→08:01)
[2021-09-09] MEDS: morphine 2 MG/ML inj. syringe IV PRN (07:00)
[2021-09-09] MEDS: carVEDilol 12.5mg tablet PO SCH ×3 (07:30→17:30)
[2021-09-09] MEDS: DESVENLAFAXINE SUCCINATE PO SCH (08:00)
[2021-09-09] MEDS: docusate sod 100mg capsule PO SCH ×2 (08:00→20:26)
[2021-09-09] MEDS: heparin, porcine 5000 units/ml vial SQ SCH ×2 (08:00→20:28)
[2021-09-09] MEDS: Budesonide/Glycopyr/Formoterol (Breztri Aerosphere Inhaler) IH SCH (08:00)
[2021-09-09] MEDS: CefTRIAXone/D5W-Rocephin 1gm 50 ML IV SCH (08:01)
[2021-09-09] MEDS: pantoprazole 40MG/NS 100ML BAG 100 ML IV SCH ×2 (08:01→21:16)
[2021-09-09] MEDS: metroNIDAZOLE-Flagyl 500mg/NS 100 ML IV SCH (08:01)
[2021-09-09] MEDS: thiamine 100mg/ml 2ml inj. IV SCH ×2 (08:01→12:45)
[2021-09-09] MEDS: K and/or MAG REPLACEMENT MC SCH ×2 (08:06→20:00)
[2021-09-09] MEDS: folic acid 1mg/0.2ml inj IV SCH (08:11)
--- NOTE | 2021-09-09 09:42 | NUR ---
IV Out IV at left AC was infiltrated. Line d/c'd, tip in tact RN notified.
[2021-09-09] MEDS ORDERED: potassium Cl 20 mEq SR tablet PO ONE (11:05)
[2021-09-09] MEDS: calcium carbonate/vitamin D3 tablet PO SCH ×2 (12:44→17:30)
[2021-09-09] MEDS: chlordiazePOXIDE 25mg capsule PO SCH ×2 (12:45→20:28)
[2021-09-09 13:55] LABS: MAGNESIUM 2.2 MG/DL (1.5-2.4); POTASSIUM 3.9 MMOL/L (3.5-5.1)
--- NOTE | 2021-09-09 16:23 | NUR ---
Patient in room ICU 2040, transferring to 3014A on PCU. I have received report from Williams OTT and had the opportunity to ask questions and assume patient care. Patient will be heading to MRI prior to arriving on floor.
--- NOTE | 2021-09-09 17:34 | NUR ---
Report handed off to RESEARCH PROGRAM MANAGER, questions/concerns answered. Pt and family's questions and concerns answered prior to transfer. All pt belongings accounted for and family took them with.
--- NOTE | 2021-09-09 18:30 | NUR ---
Problems reprioritized. Patient report given, questions answered & plan of care reviewed with Geneva OTT.
--- NOTE | 2021-09-09 18:32 | NUR ---
Patient in room PCU 3014. I have received report from TRU Chawla and had the opportunity to ask questions and assume patient care.
[2021-09-09] MEDS: metroNIDAZOLE 500mg tablet PO SCH (20:28)
[2021-09-10] MEDS: ringers solution, lacted 1,000 ML IV SCH ×3 (02:08→17:50)
[2021-09-10] MEDS: ipratropium/albuterol 3ml nebule NEB SCH ×4 (02:29→22:38)
[2021-09-10] MEDS ORDERED: VANCOMYCIN LEVEL IV ONE (02:30)
[2021-09-10] MEDS: lactulose 20gm/30ml cup PO SCH ×4 (02:33→20:43)
[2021-09-10 03:34] LABS: ALANINE AMINOTRANSFERASE 43 U/L (12-78); ALBUMIN 1.7 G/DL (3.4-5.0); ALBUMIN/GLOBULIN RATIO 0.5 (1.1-1.5); ALKALINE PHOSPHATASE 263 IU/L (46-116); ANION GAP 5 (8-16); ASPARTATE AMINO TRANSFERASE 77 U/L (10-37); BILIRUBIN,TOTAL 0.8 MG/DL (0.1-1.0); BLOOD UREA NITROGEN 5 MG/DL (7-18); BUN/CREATININE RATIO 7.4 (6.6-38.0); CALCIUM 6.4 MG/DL (8.5-10.1); CHLORIDE 117 MMOL/L (99-107); CREATININE 0.68 MG/DL (0.40-0.90); GLUCOSE 104 MG/DL (70-104); MAGNESIUM 1.6 MG/DL (1.5-2.4); PHOSPHORUS 2.6 MG/DL (2.3-4.5); POTASSIUM 3.9 MMOL/L (3.5-5.1); SODIUM 147 MMOL/L (135-145); TOTAL CARBON DIOXIDE 24.8 MMOL/L (24-32); TOTAL PROTEIN 4.9 G/DL (6.4-8.2); VANCOMYCIN,TROUGH 2.9 UG/ML (6.0-14.0); eGFR 90 ML/MIN
[2021-09-10 03:44] LABS: BASOPHILS # (AUTO) 0.3 X10'3 (0-0.2); BASOPHILS % (AUTO) 1.5 % (0-1); EOSINOPHILS # (AUTO) 0.5 X10'3 (0-0.9); EOSINOPHILS % (AUTO) 2.8 % (0-6); HEMATOCRIT 33.4 % (35.0-45.0); HEMOGLOBIN 10.8 g/dl (12.0-16.0); LYMPHOCYTES # (AUTO) 2.2 X10'3 (1.1-4.8); LYMPHOCYTES % (AUTO) 12.6 % (21-51); MEAN CORPUSCULAR HEMOGLOBIN 32.2 PG (27.0-31.0); MEAN CORPUSCULAR HGB CONC 32.4 g/dL (33.0-36.5); MEAN CORPUSCULAR VOLUME 99.6 FL (78-98); MEAN PLATELET VOLUME 10.4 FL (7.4-10.4); MONOCYTES # (AUTO) 1.1 X10'3 (0-0.9); MONOCYTES % (AUTO) 6.2 % (2-12); NEUTROPHILS # (AUTO) 13.2 X10'3 (1.8-7.7); NEUTROPHILS % (AUTO) 76.9 % (42-75); PLATELET COUNT 237 X10'3 (140-440); RED BLOOD COUNT 3.36 X10'6 (4.20-5.60); RED CELL DISTRIBUTION WIDTH 16.4 % (11.5-14.5); WHITE BLOOD COUNT 17.2 X10'3 (4.5-11.0)
[2021-09-10 04:00] VITALS: BP 157/92
[2021-09-10 06:00] VITALS: BP 158/92
--- NOTE | 2021-09-10 06:26 | NUR ---
Problems reprioritized. Patient report given, questions answered & plan of care reviewed with TRU Chawla.
--- NOTE | 2021-09-10 06:30 | NUR ---
Patient in room PCU 3014. I have received report from Geneva OTT and had the opportunity to ask questions and assume patient care.
[2021-09-10] MEDS: DESVENLAFAXINE SUCCINATE PO SCH (08:00)
[2021-09-10] MEDS: K and/or MAG REPLACEMENT MC SCH ×2 (08:00→20:00)
[2021-09-10] MEDS: carVEDilol 12.5mg tablet PO SCH ×2 (08:03→20:44)
[2021-09-10] MEDS: calcium carbonate/vitamin D3 tablet PO SCH ×3 (08:03→20:44)
[2021-09-10] MEDS: thiamine 100mg tablet PO SCH (08:04)
[2021-09-10] MEDS: heparin, porcine 5000 units/ml vial SQ SCH ×2 (08:04→20:44)
[2021-09-10] MEDS: chlordiazePOXIDE 25mg capsule PO SCH ×3 (08:04→20:44)
[2021-09-10] MEDS: metroNIDAZOLE 500mg tablet PO SCH ×3 (08:04→20:44)
[2021-09-10] MEDS: docusate sod 100mg capsule PO SCH ×2 (08:04→20:44)
[2021-09-10] MEDS: pantoprazole 40MG/NS 100ML BAG 100 ML IV SCH ×2 (08:05→20:46)
[2021-09-10] MEDS: CefTRIAXone/D5W-Rocephin 1gm 50 ML IV SCH (08:05)
[2021-09-10 11:00] VITALS: BP 138/77
--- NOTE | 2021-09-10 11:49 | NUR ---
Spoke to pharmacy about Patient own med: desvenlafaxine succinate. We do not carry this medication here, patients is going to bring it in.
--- NOTE | 2021-09-10 12:17 | NUR ---
Reassessment: Pt PO intake ~[facility] of [facility], not meeting estimated nutritional needs. Noted pt continues as A&O x 2 w/ moderate assistance at meals. Pt could benefit from Ensure Enlive TIDWM to help meet kcal/protein needs, if MD agreeable. IF poor PO intake continues, consider nutrition support if medically appropriate and within POC. LBM 3/2, receiving routine bowel care. Will continue to monitor. Recommendations: 1. Continue regular diet as tolerated 2. Ensure Enlive TIDWM, pending MD approval 3. Encourage PO intake 4. Routine bowel care 5. Weekly scaled wt 6. IF poor PO intake continues, consider nutrition support if medically appropriate and within POC Addendum: 09/10/21 at [address] Amended: Links added. Addendum: 09/10/21 at [address] I have reviewed assessment by project internship
[2021-09-10] MEDS ORDERED: LORazepam 2 mg/ml vial IV PRN (14:35)
[2021-09-10] MEDS ORDERED: LORazepam 1 MG tablet PO PRN (14:35)
[2021-09-10 15:00] VITALS: BP 105/69
[2021-09-10] MEDS: nicotine 7mg patch - 24hr TD SCH (15:51)
--- NOTE | 2021-09-10 18:25 | NUR ---
Problems reprioritized. Patient report given, questions answered & plan of care reviewed with Geneva OTT.
[2021-09-10 19:00] VITALS: BP 143/76
[2021-09-10] MEDS: morphine 2 MG/ML inj. syringe IV PRN (20:45)
[2021-09-10 23:00] VITALS: BP 119/81
[2021-09-11] MEDS: ringers solution, lacted 1,000 ML IV SCH ×3 (01:47→18:00)
[2021-09-11] MEDS: ipratropium/albuterol 3ml nebule NEB SCH ×4 (02:34→20:53)
[2021-09-11] MEDS: lactulose 20gm/30ml cup PO SCH ×4 (02:56→19:47)
[2021-09-11 03:00] VITALS: BP 127/74
--- NOTE | 2021-09-11 06:31 | NUR ---
Problems reprioritized. Patient report given, questions answered & plan of care reviewed with TRU Costello.
[2021-09-11 07:13] LABS: BASOPHILS # (AUTO) 0.2 X10'3 (0-0.2); BASOPHILS % (AUTO) 1.1 % (0-1); EOSINOPHILS # (AUTO) 0.4 X10'3 (0-0.9); EOSINOPHILS % (AUTO) 2.1 % (0-6); HEMATOCRIT 32.2 % (35.0-45.0); HEMOGLOBIN 10.5 g/dl (12.0-16.0); LYMPHOCYTES # (AUTO) 2.1 X10'3 (1.1-4.8); LYMPHOCYTES % (AUTO) 10.7 % (21-51); MEAN CORPUSCULAR HEMOGLOBIN 32.6 PG (27.0-31.0); MEAN CORPUSCULAR HGB CONC 32.7 g/dL (33.0-36.5); MEAN CORPUSCULAR VOLUME 99.7 FL (78-98); MEAN PLATELET VOLUME 10.5 FL (7.4-10.4); MONOCYTES # (AUTO) 1.2 X10'3 (0-0.9); NEUTROPHILS # (AUTO) 15.5 X10'3 (1.8-7.7); NEUTROPHILS % (AUTO) 80.1 % (42-75); PLATELET COUNT 235 X10'3 (140-440); RED BLOOD COUNT 3.22 X10'6 (4.20-5.60); RED CELL DISTRIBUTION WIDTH 16.4 % (11.5-14.5); WHITE BLOOD COUNT 19.3 X10'3 (4.5-11.0)
[2021-09-11 07:14] VITALS: BP 117/77
[2021-09-11 07:30] LABS: ALANINE AMINOTRANSFERASE 21 U/L (12-78); ALBUMIN 1.6 G/DL (3.4-5.0); ALBUMIN/GLOBULIN RATIO 0.5 (1.1-1.5); ALKALINE PHOSPHATASE 241 IU/L (46-116); ANION GAP 10 (8-16); ASPARTATE AMINO TRANSFERASE 61 U/L (10-37); BILIRUBIN,TOTAL 0.6 MG/DL (0.1-1.0); BLOOD UREA NITROGEN 4 MG/DL (7-18); BUN/CREATININE RATIO 5.8 (6.6-38.0); CALCIUM 6.8 MG/DL (8.5-10.1); CHLORIDE 115 MMOL/L (99-107); CREATININE 0.69 MG/DL (0.40-0.90); GLUCOSE 95 MG/DL (70-104); MAGNESIUM 1.2 MG/DL (1.5-2.4); PHOSPHORUS 3.3 MG/DL (2.3-4.5); POTASSIUM 3.2 MMOL/L (3.5-5.1); SODIUM 150 MMOL/L (135-145); TOTAL PROTEIN 4.6 G/DL (6.4-8.2); eGFR 89 ML/MIN
[2021-09-11] MEDS: docusate sod 100mg capsule PO SCH ×2 (08:00→19:46)
[2021-09-11] MEDS: pantoprazole 40MG/NS 100ML BAG 100 ML IV SCH ×2 (08:21→17:59)
[2021-09-11] MEDS: CefTRIAXone/D5W-Rocephin 1gm 50 ML IV SCH ×2 (08:21→11:38)
[2021-09-11] MEDS: chlordiazePOXIDE 25mg capsule PO SCH ×3 (08:26→19:45)
[2021-09-11] MEDS: carVEDilol 12.5mg tablet PO SCH ×2 (08:31→17:30)
[2021-09-11] MEDS: thiamine 100mg tablet PO SCH (08:31)
[2021-09-11] MEDS: metroNIDAZOLE 500mg tablet PO SCH ×3 (08:32→19:45)
[2021-09-11] MEDS: folic acid 1mg tablet PO SCH (08:32)
[2021-09-11] MEDS: calcium carbonate/vitamin D3 tablet PO SCH ×3 (08:32→17:58)
[2021-09-11] MEDS: nicotine 7mg patch - 24hr TD SCH (08:38)
[2021-09-11] MEDS: heparin, porcine 5000 units/ml vial SQ SCH ×2 (08:39→19:45)
[2021-09-11 11:00] VITALS: BP 137/85
--- NOTE | 2021-09-11 11:23 | NUR ---
Page Sent PAGER ID: [phone] MESSAGE: Pt Anusha Fontaine in rm 3014A is complaining of some pain in her chest. She said it feels like burning. O2 is 96 on room air and BP is 137/85. [facility]
[2021-09-11] MEDS: DESVENLAFAXINE SUCCINATE 25 MG PO SCH (11:39)
[2021-09-11] MEDS: K and/or MAG REPLACEMENT MC SCH ×2 (12:30→20:00)
[2021-09-11 15:00] VITALS: BP 102/65
--- NOTE | 2021-09-11 18:20 | NUR ---
Patient in room PCU 3014. I have received report from TRU Costello and had the opportunity to ask questions and assume patient care.
[2021-09-11 19:00] VITALS: BP 134/86
[2021-09-11] MEDS: morphine 2 MG/ML inj. syringe IV PRN (19:46)
[2021-09-11 23:00] VITALS: BP 118/76
[2021-09-12] VITALS (7 sets, daily range): BP systolic 87–175; BP diastolic 51–104
[2021-09-12] MEDS: ringers solution, lacted 1,000 ML IV SCH ×3 (01:38→19:00)
[2021-09-12] MEDS: lactulose 20gm/30ml cup PO SCH ×4 (02:00→21:34)
[2021-09-12] MEDS: ipratropium/albuterol 3ml nebule NEB SCH ×4 (03:01→20:39)
--- NOTE | 2021-09-12 03:40 | NUR ---
PAGER ID: [phone] MESSAGE: FYI - 3014A [facility] lab just called Blood Culture on 09/11 @ 1138 Right arm (+) aerobic 13 hrs gr+ coocc pair short chain.
--- NOTE | 2021-09-12 03:45 | NUR ---
New orders received from Dr Vicente and carried out. Patient now on Vanco IV Q12hrs.
[2021-09-12] MEDS: VANCOmycin 1250MG/NS 250ml Bag 250 ML IV SCH ×2 (04:57→16:21)
--- NOTE | 2021-09-12 06:13 | NUR ---
Problems reprioritized. Patient report given, questions answered & plan of care reviewed with TRU Costello.
[2021-09-12] MEDS: CefTRIAXone/D5W-Rocephin 1gm 50 ML IV SCH (08:14)
[2021-09-12] MEDS: pantoprazole 40MG/NS 100ML BAG 100 ML IV SCH ×2 (08:14→21:35)
[2021-09-12] MEDS: folic acid 1mg tablet PO SCH (08:15)
[2021-09-12] MEDS: docusate sod 100mg capsule PO SCH ×2 (08:15→21:35)
[2021-09-12] MEDS: thiamine 100mg tablet PO SCH (08:15)
[2021-09-12] MEDS: metroNIDAZOLE 500mg tablet PO SCH ×3 (08:15→21:35)
[2021-09-12] MEDS: carVEDilol 12.5mg tablet PO SCH ×2 (08:15→17:30)
[2021-09-12] MEDS: nicotine 7mg patch - 24hr TD SCH (08:16)
[2021-09-12] MEDS: heparin, porcine 5000 units/ml vial SQ SCH ×2 (08:18→21:34)
[2021-09-12] MEDS: chlordiazePOXIDE 25mg capsule PO SCH ×3 (08:18→21:34)
[2021-09-12] MEDS: calcium carbonate/vitamin D3 tablet PO SCH ×3 (08:30→17:30)
[2021-09-12] MEDS: DESVENLAFAXINE SUCCINATE 25 MG PO SCH (08:48)
[2021-09-12 11:59] LABS: BASOPHILS # (AUTO) 0.3 X10'3 (0-0.2); BASOPHILS % (AUTO) 1.3 % (0-1); EOSINOPHILS # (AUTO) 0.4 X10'3 (0-0.9); EOSINOPHILS % (AUTO) 2.3 % (0-6); HEMATOCRIT 33.8 % (35.0-45.0); MEAN CORPUSCULAR HEMOGLOBIN 32.4 PG (27.0-31.0); MEAN CORPUSCULAR HGB CONC 32.4 g/dL (33.0-36.5); MEAN CORPUSCULAR VOLUME 99.8 FL (78-98); MEAN PLATELET VOLUME 10.2 FL (7.4-10.4); MONOCYTES # (AUTO) 1.2 X10'3 (0-0.9); MONOCYTES % (AUTO) 6.1 % (2-12); NEUTROPHILS % (AUTO) 80.3 % (42-75); PLATELET COUNT 279 X10'3 (140-440); RED BLOOD COUNT 3.39 X10'6 (4.20-5.60); RED CELL DISTRIBUTION WIDTH 16.3 % (11.5-14.5); WHITE BLOOD COUNT 19.9 X10'3 (4.5-11.0)
[2021-09-12 12:31] LABS: ALANINE AMINOTRANSFERASE 35 U/L (12-78); ALBUMIN 1.6 G/DL (3.4-5.0); ALBUMIN/GLOBULIN RATIO 0.5 (1.1-1.5); ANION GAP 6 (8-16); ASPARTATE AMINO TRANSFERASE 117 U/L (10-37); BILIRUBIN,TOTAL 1.6 MG/DL (0.1-1.0); BLOOD UREA NITROGEN 4 MG/DL (7-18); CHLORIDE 111 MMOL/L (99-107); CREATININE 0.67 MG/DL (0.40-0.90); GLUCOSE 119 MG/DL (70-104); MAGNESIUM 1.3 MG/DL (1.5-2.4); SODIUM 145 MMOL/L (135-145); TOTAL CARBON DIOXIDE 27.8 MMOL/L (24-32); TOTAL PROTEIN 4.8 G/DL (6.4-8.2); eGFR > 90 ML/MIN
[2021-09-12 12:41] LABS: ALKALINE PHOSPHATASE 587 IU/L (46-116)
[2021-09-12 12:54] LABS: POTASSIUM 2.7 MMOL/L (3.5-5.1)
[2021-09-12] MEDS: K and/or MAG REPLACEMENT MC SCH ×2 (13:00→20:00)
--- NOTE | 2021-09-12 13:07 | NUR ---
Page Sent PAGER ID: [phone] MESSAGE: FYI. emani solomon in room 14 A, renewed labs this morning K+ 2.7 and mg 1.3 will replace per protocol. [facility] [id number]
[2021-09-12] MEDS ORDERED: potassium Cl 20 mEq SR tablet PO STA (13:30)
[2021-09-12] MEDS ORDERED: magnesium oxide 400mg tablet PO ONE (13:30)
[2021-09-12] MEDS ORDERED: magnesium oxide 400mg tablet PO SCH (16:00)
--- NOTE | 2021-09-12 18:25 | NUR ---
Patient in room PCU 3014. I have received report from TRU Costello and had the opportunity to ask questions and assume patient care.
[2021-09-12] MEDS: potassium Cl 20 mEq SR tablet PO SCH (21:33)
[2021-09-12] MEDS: magnesium Cl slow-release 64mg tablet PO SCH (21:35)
[2021-09-13] MEDS: ringers solution, lacted 1,000 ML IV SCH ×2 (01:45→14:25)
[2021-09-13 02:00] VITALS: BP 128/81
[2021-09-13] MEDS: lactulose 20gm/30ml cup PO SCH ×4 (02:00→20:23)
[2021-09-13] MEDS: ipratropium/albuterol 3ml nebule NEB SCH ×4 (02:39→21:35)
[2021-09-13] MEDS: VANCOmycin 1250MG/NS 250ml Bag 250 ML IV SCH ×3 (04:00→16:24)
[2021-09-13 06:00] VITALS: BP 139/96
--- NOTE | 2021-09-13 06:19 | NUR ---
Problems reprioritized. Patient report given, questions answered & plan of care reviewed with TRU Costello.
[2021-09-13 07:50] LABS: EOSINOPHILS # (AUTO) 0.5 X10'3 (0-0.9); EOSINOPHILS % (AUTO) 2.6 % (0-6); RED CELL DISTRIBUTION WIDTH 17.1 % (11.5-14.5)
[2021-09-13 07:51] LABS: BASOPHILS # (AUTO) 0.3 X10'3 (0-0.2); BASOPHILS % (AUTO) 1.7 % (0-1); HEMOGLOBIN 10.7 g/dl (12.0-16.0); LYMPHOCYTES # (AUTO) 1.9 X10'3 (1.1-4.8); LYMPHOCYTES % (AUTO) 10.6 % (21-51); MEAN CORPUSCULAR HEMOGLOBIN 32.5 PG (27.0-31.0); MEAN CORPUSCULAR HGB CONC 32.4 g/dL (33.0-36.5); MEAN CORPUSCULAR VOLUME 100.4 FL (78-98); MEAN PLATELET VOLUME 10.6 FL (7.4-10.4); MONOCYTES # (AUTO) 1.2 X10'3 (0-0.9); MONOCYTES % (AUTO) 6.8 % (2-12); NEUTROPHILS # (AUTO) 14.1 X10'3 (1.8-7.7); NEUTROPHILS % (AUTO) 78.3 % (42-75); PLATELET COUNT 316 X10'3 (140-440); RED BLOOD COUNT 3.29 X10'6 (4.20-5.60); WHITE BLOOD COUNT 18.1 X10'3 (4.5-11.0)
[2021-09-13] MEDS: docusate sod 100mg capsule PO SCH ×2 (08:00→20:23)
[2021-09-13] MEDS: thiamine 100mg tablet PO SCH (08:00)
[2021-09-13] MEDS: nicotine 7mg patch - 24hr TD SCH (08:00)
[2021-09-13] MEDS: K and/or MAG REPLACEMENT MC SCH ×2 (08:00→20:00)
[2021-09-13 08:21] LABS: ANISOCYTOSIS 1+; PLATELET ESTIMATE NORMAL; TOTAL CELLS COUNTED 100
[2021-09-13 08:23] LABS: POLYCHROMASIA FEW
[2021-09-13] MEDS: DESVENLAFAXINE SUCCINATE 25 MG PO SCH (08:55)
[2021-09-13] MEDS: pantoprazole 40MG/NS 100ML BAG 100 ML IV SCH ×2 (08:55→20:22)
[2021-09-13] MEDS: CefTRIAXone/D5W-Rocephin 1gm 50 ML IV SCH (08:55)
[2021-09-13] MEDS: magnesium Cl slow-release 64mg tablet PO SCH ×2 (08:56→20:23)
[2021-09-13] MEDS: metroNIDAZOLE 500mg tablet PO SCH ×3 (08:56→20:35)
[2021-09-13] MEDS: chlordiazePOXIDE 25mg capsule PO SCH ×3 (08:56→16:24)
[2021-09-13] MEDS: folic acid 1mg tablet PO SCH (08:56)
[2021-09-13] MEDS: heparin, porcine 5000 units/ml vial SQ SCH ×2 (08:56→20:23)
[2021-09-13] MEDS: calcium carbonate/vitamin D3 tablet PO SCH ×3 (08:56→16:24)
[2021-09-13 09:06] LABS: ALANINE AMINOTRANSFERASE 30 U/L (12-78); ASPARTATE AMINO TRANSFERASE 77 U/L (10-37); BILIRUBIN,TOTAL 0.8 MG/DL (0.1-1.0); CREATININE 0.59 MG/DL (0.40-0.90); GLUCOSE 99 MG/DL (70-104); eGFR > 90 ML/MIN
[2021-09-13 09:07] LABS: ALBUMIN 1.5 G/DL (3.4-5.0); ALBUMIN/GLOBULIN RATIO 0.5 (1.1-1.5); ALKALINE PHOSPHATASE 536 IU/L (46-116); BLOOD UREA NITROGEN 5 MG/DL (7-18); BUN/CREATININE RATIO 8.5 (6.6-38.0); CALCIUM 7.2 MG/DL (8.5-10.1); MAGNESIUM 1.3 MG/DL (1.5-2.4); TOTAL CARBON DIOXIDE 27.5 MMOL/L (24-32); TOTAL PROTEIN 4.7 G/DL (6.4-8.2)
--- NOTE | 2021-09-13 10:18 | NUR ---
Reassessment: Pt continues w/ similar PO, 25-50% intake of meals on Regular/mechanical soft diet not meeting needs. ONS remains unverified in EMR though pt can still benefit from them to help meet nutritional needs. Pt remains A&O x 2 and confused, needing feeder w/ meals per documentation. Per MD note, sepsis has resolved. LBM 3/4 receiving routine colace. No change to recommendations at this time, will continue to monitor. Recommendations: 1. Continue regular diet as tolerated 2. Ensure Enlive TIDWM, pending MD approval 3. Encourage PO intake 4. Routine bowel care 5. Weekly scaled wt 6. IF poor PO intake continues, consider nutrition support if medically appropriate and within POC Addendum: 09/13/21 at [address] Amended: Links added.
[2021-09-13] MEDS: carVEDilol 12.5mg tablet PO SCH ×3 (10:53→16:24)
[2021-09-13 11:00] VITALS: BP 152/94
[2021-09-13 14:30] LABS: POTASSIUM 3.1 MMOL/L (3.3-5.1)
[2021-09-13] MEDS ORDERED: VANCOMYCIN LEVEL IV ONE (15:30)
[2021-09-13] MEDS: potassium Cl 20 mEq SR tablet PO SCH ×2 (16:22→16:25)
[2021-09-13 18:00] VITALS: BP 97/58
[2021-09-13] MEDS: lactose-reduced food (Ensure Enlive) - 237ml bottle PO SCH (18:00)
--- NOTE | 2021-09-13 18:40 | NUR ---
Patient in room PCU 3014A. I have received report from TRU Rawls and had the opportunity to ask questions and assume patient care.
[2021-09-13 22:00] VITALS: BP 97/55
[2021-09-14 02:00] VITALS: BP 108/44
[2021-09-14] MEDS: lactulose 20gm/30ml cup PO SCH ×4 (02:00→20:55)
[2021-09-14] MEDS: ipratropium/albuterol 3ml nebule NEB SCH ×4 (02:54→19:25)
[2021-09-14 06:00] VITALS: BP 177/77
--- NOTE | 2021-09-14 06:08 | NUR ---
Problems reprioritized. Patient report given, questions answered & plan of care reviewed with TRU Rawls.
[2021-09-14] MEDS: pantoprazole 40MG/NS 100ML BAG 100 ML IV SCH ×2 (07:39→20:58)
[2021-09-14] MEDS: magnesium Cl slow-release 64mg tablet PO SCH ×2 (07:39→20:56)
[2021-09-14] MEDS: calcium carbonate/vitamin D3 tablet PO SCH ×3 (07:40→17:30)
[2021-09-14] MEDS: metroNIDAZOLE 500mg tablet PO SCH ×3 (07:41→20:56)
[2021-09-14] MEDS: heparin, porcine 5000 units/ml vial SQ SCH ×2 (07:41→20:56)
[2021-09-14] MEDS: folic acid 1mg tablet PO SCH (07:41)
[2021-09-14] MEDS: lactose-reduced food (Ensure Enlive) - 237ml bottle PO SCH ×4 (08:00→18:52)
[2021-09-14] MEDS: docusate sod 100mg capsule PO SCH ×2 (08:00→20:56)
[2021-09-14] MEDS: nicotine 7mg patch - 24hr TD SCH (08:00)
[2021-09-14] MEDS: K and/or MAG REPLACEMENT MC SCH ×3 (08:00→20:00)
[2021-09-14] MEDS: potassium Cl 20 mEq SR tablet PO SCH ×2 (08:30→13:42)
[2021-09-14 09:08] LABS: BASOPHILS # (AUTO) 0.2 X10'3 (0-0.2); BASOPHILS % (AUTO) 1.4 % (0-1); EOSINOPHILS # (AUTO) 0.5 X10'3 (0-0.9); EOSINOPHILS % (AUTO) 3.2 % (0-6); HEMATOCRIT 31.8 % (35.0-45.0); HEMOGLOBIN 10.3 g/dl (12.0-16.0); LYMPHOCYTES # (AUTO) 2.2 X10'3 (1.1-4.8); LYMPHOCYTES % (AUTO) 12.9 % (21-51); MEAN CORPUSCULAR HEMOGLOBIN 32.6 PG (27.0-31.0); MEAN CORPUSCULAR HGB CONC 32.4 g/dL (33.0-36.5); MEAN CORPUSCULAR VOLUME 100.8 FL (78-98); MEAN PLATELET VOLUME 9.8 FL (7.4-10.4); MONOCYTES # (AUTO) 0.9 X10'3 (0-0.9); MONOCYTES % (AUTO) 5.3 % (2-12); NEUTROPHILS # (AUTO) 12.9 X10'3 (1.8-7.7); NEUTROPHILS % (AUTO) 77.2 % (42-75); PLATELET COUNT 345 X10'3 (140-440); RED BLOOD COUNT 3.15 X10'6 (4.20-5.60); WHITE BLOOD COUNT 16.7 X10'3 (4.5-11.0)
[2021-09-14] MEDS: CefTRIAXone/D5W-Rocephin 1gm 50 ML IV SCH (09:19)
[2021-09-14 09:26] LABS: ALANINE AMINOTRANSFERASE 24 U/L (12-78); ALBUMIN 1.5 G/DL (3.4-5.0); ALBUMIN/GLOBULIN RATIO 0.5 (1.1-1.5); ALKALINE PHOSPHATASE 437 IU/L (46-116); ANION GAP 2 (8-16); ASPARTATE AMINO TRANSFERASE 49 U/L (10-37); BILIRUBIN,TOTAL 0.5 MG/DL (0.1-1.0); BLOOD UREA NITROGEN 6 MG/DL (7-18); BUN/CREATININE RATIO 9.7 (6.6-38.0); CALCIUM 7.2 MG/DL (8.5-10.1); CHLORIDE 115 MMOL/L (99-107); CREATININE 0.62 MG/DL (0.40-0.90); GLUCOSE 109 MG/DL (70-104); MAGNESIUM 1.5 MG/DL (1.5-2.4); SODIUM 149 MMOL/L (135-145); TOTAL CARBON DIOXIDE 32.3 MMOL/L (24-32); TOTAL PROTEIN 4.8 G/DL (6.4-8.2); eGFR > 90 ML/MIN
[2021-09-14 09:33] LABS: POTASSIUM 2.9 MMOL/L (3.5-5.1)
[2021-09-14] MEDS ORDERED: albumin (human) 25% 100 ML IV solution IV ONE (10:50)
[2021-09-14 11:00] VITALS: BP 117/63
--- NOTE | 2021-09-14 12:52 | NUR ---
PRESSURE ULCER EDUCATION: DEFINITION: A pressure ulcer is an area of skin that breaks down when you stay in one position too long. The constant pressure against the skin reduces the blood flow to that area and the affected tissue dies. CAUSES: "Being bedridden or in a wheelchair "Fragile skin "Having a chronic condition, such as diabetes or vascular disease "Inability to move certain parts of your body without assistance "Older age "Incontinence of urine or stool SYMPTOMS: "A reddened area that DOES NOT turn white when pressed on - this can be the beginning of a pressure ulcer "A blister, deep sore or a crater - these can be advanced pressure ulcers FIRST AID: "Relieve the pressure on this area "Keep the area clean and dry "Call your primary doctor if you see any of the above symptoms "DO NOT massage the area "DO NOT use a donut shaped or ring shaped pillow- these actually interfere with the blood flow and cause complications PREVENTION: "Check for pressure ulcers everyday "Change position at least every two hours to relieve pressure "Use items that help relieve pressure- pillows, sheepskin, foam padding, and powders. "Keep skin clean and dry "Eat healthy well balanced meals "Exercise daily IF YOU SEE ANY OF THESE SYMPTOMS WHILE IN THE HOSPITAL - TELL YOUR NURSE IMMEDIATELY. IF YOU SEE ANY OF THESE SYMPTOMS WHILE AT HOME OR HAVE ANY QUESTIONS OR CONCERNS ABOUT PRESSURE ULCERS - CALL YOUR PRIMARY DOCTOR IMMEDIATELY. Addendum: 09/14/21 at 1253 by Carlota Rodrigues RN Amended: Links added.
[2021-09-14] MEDS ORDERED: magnesium 2GM in 50ml NS 50 ML IV PRN (13:20)
[2021-09-14] MEDS ORDERED: potassium CL 10mEq/100ml bag 100 ML IV PRN (13:20)
[2021-09-14] MEDS ORDERED: magnesium Cl slow-release 64mg tablet PO PRN (13:20)
[2021-09-14] MEDS ORDERED: magnesium 4gm in 100ml NS 100 ML IV PRN (13:20)
[2021-09-14] MEDS: dextrose 5%-water 1,000 ML IV SCH ×2 (13:41→19:30)
[2021-09-14] MEDS: thiamine 100mg tablet PO SCH (13:42)
[2021-09-14] MEDS: DESVENLAFAXINE SUCCINATE 25 MG PO SCH (13:42)
[2021-09-14 15:00] VITALS: BP 125/54
[2021-09-14] MEDS: VANCOmycin 1250MG/NS 250ml Bag 250 ML IV SCH (16:00)
[2021-09-14] MEDS: carVEDilol 12.5mg tablet PO SCH (17:58)
[2021-09-14 18:00] VITALS: BP 136/85
[2021-09-14] MEDS: linezolid 600mg/300ml PREMIX 300 ML IV SCH (18:55)
[2021-09-14] MEDS: potassium Cl 20 mEq SR tablet PO PRN (21:23)
[2021-09-14 22:00] VITALS: BP 141/79
[2021-09-15] MEDS: potassium Cl 20 mEq SR tablet PO PRN ×2 (01:21→12:37)
[2021-09-15] MEDS: lactulose 20gm/30ml cup PO SCH ×4 (01:21→21:07)
[2021-09-15 02:00] VITALS: BP 121/75
[2021-09-15] MEDS: ipratropium/albuterol 3ml nebule NEB SCH ×4 (02:30→20:25)
[2021-09-15 06:00] VITALS: BP 112/68
[2021-09-15] MEDS: linezolid 600mg/300ml PREMIX 300 ML IV SCH ×2 (06:02→21:07)
[2021-09-15 06:48] LABS: MAGNESIUM 1.4 MG/DL (1.5-2.4); POTASSIUM 3.2 MMOL/L (3.5-5.1)
[2021-09-15] MEDS: potassium Cl 20 mEq SR tablet PO SCH ×2 (07:51→17:00)
[2021-09-15] MEDS: carVEDilol 12.5mg tablet PO SCH ×2 (07:52→17:00)
[2021-09-15] MEDS: metroNIDAZOLE 500mg tablet PO SCH ×2 (07:52→12:37)
[2021-09-15] MEDS: calcium carbonate/vitamin D3 tablet PO SCH ×3 (07:52→17:00)
[2021-09-15] MEDS: magnesium Cl slow-release 64mg tablet PO SCH ×2 (07:52→21:07)
[2021-09-15] MEDS: folic acid 1mg tablet PO SCH (07:52)
[2021-09-15] MEDS: nicotine 7mg patch - 24hr TD SCH (07:52)
[2021-09-15] MEDS: thiamine 100mg tablet PO SCH (07:52)
[2021-09-15] MEDS: CefTRIAXone/D5W-Rocephin 1gm 50 ML IV SCH (07:52)
[2021-09-15] MEDS: docusate sod 100mg capsule PO SCH ×2 (07:52→21:08)
[2021-09-15] MEDS ORDERED: linezolid 600mg/300ml PREMIX 300 ML IV SCH (08:00)
[2021-09-15] MEDS: K and/or MAG REPLACEMENT MC SCH ×2 (08:00→20:00)
[2021-09-15] MEDS: heparin, porcine 5000 units/ml vial SQ SCH ×2 (08:15→21:07)
[2021-09-15] MEDS: pantoprazole 40MG/NS 100ML BAG 100 ML IV SCH ×2 (09:21→21:06)
[2021-09-15] MEDS: DESVENLAFAXINE SUCCINATE 25 MG PO SCH (09:22)
[2021-09-15 11:00] VITALS: BP 102/64
--- NOTE | 2021-09-15 11:51 | NUR ---
Zyvox Consult: Pt PO intake continues to improve w/ ~41% avg of EC7 meals and 63% avg Ensure Enlive ONS, meeting ~93% of estimated energy needs and 100% of estimated protein needs. Pt continues w/ encephalopathy and remains A&O x 2, needing feeder w/ meals per documentation. Noted pt receiving zyvox though low tyramine diet education not appropriate at this time given pt mentation, will defer education until patient more appropriate. LBM 3/, receiving routine colace. No change to recommendations at this time, will continue to monitor. Recommendations: 1. Continue regular diet as tolerated 2. Ensure Enlive TIDWM 3. Encourage PO intake 4. Routine bowel care 5. Weekly scaled wt 6. IF poor PO intake continues, consider nutrition support if medically appropriate and within POC 7. Low tyramine diet education by MATTI once patient appropriate Addendum: 09/15/21 at [address] Amended: Links added. Addendum: 09/15/21 at [address] I have reviewed assessment by internet marketing consultant
[2021-09-15] MEDS: lactose-reduced food (Ensure Enlive) - 237ml bottle PO SCH ×2 (12:51→18:00)
[2021-09-15 15:00] VITALS: BP 104/67
[2021-09-15] MEDS: dextrose 5%-water 1,000 ML IV SCH ×2 (16:45→22:15)
[2021-09-15] MEDS ORDERED: albumin (human) 25% 100 ML IV solution IV ONE (16:45)
[2021-09-15 18:00] VITALS: BP 111/53
--- NOTE | 2021-09-15 18:14 | NUR ---
Problems reprioritized. Patient report given, questions answered & plan of care reviewed with Holly Rubio RN.
--- NOTE | 2021-09-15 18:45 | NUR ---
Patient in room PCU 3009. I have received report from TRU Panda and had the opportunity to ask questions and assume patient care.
[2021-09-15 22:00] VITALS: BP 102/61
[2021-09-16] MEDS: metroNIDAZOLE-Flagyl 500mg/NS 100 ML IV SCH ×4 (00:20→21:02)
[2021-09-16 02:00] VITALS: BP 105/55
[2021-09-16] MEDS: lactulose 20gm/30ml cup PO SCH ×4 (02:00→21:02)
[2021-09-16] MEDS: ipratropium/albuterol 3ml nebule NEB SCH ×4 (03:06→20:43)
[2021-09-16 06:00] VITALS: BP 123/68
--- NOTE | 2021-09-16 06:29 | NUR ---
Problems reprioritized. Patient report given, questions answered & plan of care reviewed with TRU Panda.
[2021-09-16 06:45] LABS: MAGNESIUM 1.4 MG/DL (1.5-2.4); POTASSIUM 3.3 MMOL/L (3.5-5.1)
[2021-09-16] MEDS: pantoprazole 40MG/NS 100ML BAG 100 ML IV SCH ×2 (07:33→21:02)
[2021-09-16] MEDS: nicotine 7mg patch - 24hr TD SCH (07:34)
[2021-09-16] MEDS: linezolid 600mg/300ml PREMIX 300 ML IV SCH ×2 (07:34→21:02)
[2021-09-16] MEDS: magnesium Cl slow-release 64mg tablet PO SCH ×2 (07:35→21:02)
[2021-09-16] MEDS: calcium carbonate/vitamin D3 tablet PO SCH ×3 (07:35→17:25)
[2021-09-16] MEDS: potassium Cl 20 mEq SR tablet PO SCH ×2 (07:35→17:25)
[2021-09-16] MEDS: carVEDilol 12.5mg tablet PO SCH ×2 (07:35→17:25)
[2021-09-16] MEDS: docusate sod 100mg capsule PO SCH ×2 (07:35→21:03)
[2021-09-16] MEDS: folic acid 1mg tablet PO SCH (07:35)
[2021-09-16] MEDS: thiamine 100mg tablet PO SCH (07:35)
[2021-09-16] MEDS: DESVENLAFAXINE SUCCINATE 25 MG PO SCH (07:35)
[2021-09-16] MEDS: CefTRIAXone/D5W-Rocephin 1gm 50 ML IV SCH (07:36)
[2021-09-16] MEDS: K and/or MAG REPLACEMENT MC SCH ×2 (08:00→20:00)
[2021-09-16] MEDS: lactose-reduced food (Ensure Enlive) - 237ml bottle PO SCH ×3 (08:24→18:28)
[2021-09-16] MEDS: heparin, porcine 5000 units/ml vial SQ SCH ×2 (08:26→21:03)
[2021-09-16 09:37] LABS: BASOPHILS % (AUTO) 0.3 % (0-1); EOSINOPHILS # (AUTO) 0.5 X10'3 (0-0.9); EOSINOPHILS % (AUTO) 3.4 % (0-6); HEMATOCRIT 30.3 % (35.0-45.0); HEMOGLOBIN 9.6 g/dl (12.0-16.0); LYMPHOCYTES # (AUTO) 1.7 X10'3 (1.1-4.8); LYMPHOCYTES % (AUTO) 13.1 % (21-51); MEAN CORPUSCULAR HEMOGLOBIN 32.2 PG (27.0-31.0); MEAN CORPUSCULAR HGB CONC 31.6 g/dL (33.0-36.5); MEAN CORPUSCULAR VOLUME 101.8 FL (78-98); MEAN PLATELET VOLUME 10.3 FL (7.4-10.4); MONOCYTES # (AUTO) 0.8 X10'3 (0-0.9); MONOCYTES % (AUTO) 5.7 % (2-12); NEUTROPHILS # (AUTO) 10.4 X10'3 (1.8-7.7); NEUTROPHILS % (AUTO) 77.5 % (42-75); PLATELET COUNT 327 X10'3 (140-440); RED BLOOD COUNT 2.98 X10'6 (4.20-5.60); RED CELL DISTRIBUTION WIDTH 17.1 % (11.5-14.5); WHITE BLOOD COUNT 13.4 X10'3 (4.5-11.0)
[2021-09-16 09:43] LABS: ALBUMIN 1.9 G/DL (3.4-5.0); ALBUMIN/GLOBULIN RATIO 0.7 (1.1-1.5); ALKALINE PHOSPHATASE 277 IU/L (46-116); ANION GAP 7 (8-16); ASPARTATE AMINO TRANSFERASE 38 U/L (10-37); BILIRUBIN,TOTAL 0.4 MG/DL (0.1-1.0); BLOOD UREA NITROGEN 4 MG/DL (7-18); BUN/CREATININE RATIO 6.5 (6.6-38.0); CALCIUM 7.3 MG/DL (8.5-10.1); CHLORIDE 111 MMOL/L (99-107); CREATININE 0.62 MG/DL (0.40-0.90); GLUCOSE 103 MG/DL (70-104); SODIUM 149 MMOL/L (135-145); TOTAL CARBON DIOXIDE 30.7 MMOL/L (24-32); TOTAL PROTEIN 4.6 G/DL (6.4-8.2); eGFR > 90 ML/MIN
[2021-09-16 09:59] LABS: ALANINE AMINOTRANSFERASE < 6 U/L (12-78)
[2021-09-16 11:00] VITALS: BP 116/67
[2021-09-16] MEDS: potassium Cl 20 mEq SR tablet PO PRN ×2 (12:32→21:51)
[2021-09-16 15:00] VITALS: BP 110/66
[2021-09-16 18:00] VITALS: BP 123/80
--- NOTE | 2021-09-16 18:24 | NUR ---
Problems reprioritized. Patient report given, questions answered & plan of care reviewed with Holly Rubio RN.
--- NOTE | 2021-09-16 18:26 | NUR ---
Patient in room PCU 3009. I have received report from TRU Panda and had the opportunity to ask questions and assume patient care.
[2021-09-16 22:00] VITALS: BP 96/60
[2021-09-17 02:00] VITALS: BP 116/72
[2021-09-17] MEDS: lactulose 20gm/30ml cup PO SCH ×4 (02:12→20:08)
[2021-09-17] MEDS: ipratropium/albuterol 3ml nebule NEB SCH ×4 (03:56→20:05)
[2021-09-17] MEDS: dextrose 5%-water 1,000 ML IV SCH (05:04)
[2021-09-17 06:00] VITALS: BP 129/68
--- NOTE | 2021-09-17 06:41 | NUR ---
Problems reprioritized. Patient report given, questions answered & plan of care reviewed with TRU Díaz.
[2021-09-17 07:21] LABS: MAGNESIUM 1.9 MG/DL (1.5-2.4); POTASSIUM 4.4 MMOL/L (3.5-5.1)
[2021-09-17] MEDS: K and/or MAG REPLACEMENT MC SCH ×2 (08:00→19:45)
[2021-09-17] MEDS: metroNIDAZOLE-Flagyl 500mg/NS 100 ML IV SCH ×2 (08:42→13:28)
[2021-09-17] MEDS: linezolid 600mg/300ml PREMIX 300 ML IV SCH (08:42)
[2021-09-17] MEDS: pantoprazole 40MG/NS 100ML BAG 100 ML IV SCH ×2 (08:42→20:07)
[2021-09-17] MEDS: docusate sod 100mg capsule PO SCH ×2 (08:43→20:10)
[2021-09-17] MEDS: CefTRIAXone/D5W-Rocephin 1gm 50 ML IV SCH (08:43)
[2021-09-17] MEDS: nicotine 7mg patch - 24hr TD SCH (08:43)
[2021-09-17] MEDS: heparin, porcine 5000 units/ml vial SQ SCH ×2 (08:44→20:08)
[2021-09-17] MEDS: thiamine 100mg tablet PO SCH (08:44)
[2021-09-17] MEDS: carVEDilol 12.5mg tablet PO SCH ×2 (08:44→16:46)
[2021-09-17] MEDS: potassium Cl 20 mEq SR tablet PO SCH ×2 (08:44→16:46)
[2021-09-17] MEDS: DESVENLAFAXINE SUCCINATE 25 MG PO SCH (08:45)
[2021-09-17] MEDS: calcium carbonate/vitamin D3 tablet PO SCH ×3 (08:45→16:46)
[2021-09-17] MEDS: folic acid 1mg tablet PO SCH (08:45)
[2021-09-17] MEDS: lactose-reduced food (Ensure Enlive) - 237ml bottle PO SCH ×3 (08:46→17:35)
[2021-09-17] MEDS: magnesium Cl slow-release 64mg tablet PO SCH ×2 (08:46→20:09)
[2021-09-17 11:00] VITALS: BP 132/69
[2021-09-17 15:00] VITALS: BP 136/73
[2021-09-17] MEDS: acetaminophen 325mg tablet PO PRN (17:36)
[2021-09-17 18:00] VITALS: BP 113/85
--- NOTE | 2021-09-17 18:20 | NUR ---
Patient in room PCU 3009. I have received report from TRU Díaz and had the opportunity to ask questions and assume patient care.
[2021-09-17] MEDS: linezolid 600mg tablet PO SCH (20:09)
[2021-09-17 22:00] VITALS: BP 135/83
[2021-09-18] VITALS (8 sets, daily range): BP systolic 118–150; BP diastolic 73–88
[2021-09-18] MEDS: metroNIDAZOLE-Flagyl 500mg/NS 100 ML IV SCH ×2 (00:14→07:50)
--- NOTE | 2021-09-18 01:25 | NUR ---
Pt had a 26 beat run of vtach immediately followed by a 12 beat run, followed by a 5 beat run, followed by an 11 beat run of vtach. [address] Kyle on floor, notified of VTs episode. Pt is asymptomatic, VSS, PT had large loose BM, was being cleaned and repositioned, when she suddenly had the VTs, TO received, to do AM Mag and K+ now. Blood drawn peripherally and sent to lab for Mag and K+ level. Will continue to monitor.
[2021-09-18 01:43] LABS: MAGNESIUM 1.6 MG/DL (1.5-2.4); POTASSIUM 3.6 MMOL/L (3.5-5.1)
[2021-09-18] MEDS: lactulose 20gm/30ml cup PO SCH ×4 (01:57→20:34)
[2021-09-18] MEDS: ipratropium/albuterol 3ml nebule NEB SCH ×4 (02:00→19:57)
--- NOTE | 2021-09-18 03:10 | NUR ---
Saroj Brannon called and notified of Hr up 140-146bpm, Bp 113/56, updated on recent K+3.6, Mag 1.6, TO received, Metoprolol 50mg po stat, keep K+ at4.0, and Mag 2.0, per protocol
[2021-09-18] MEDS ORDERED: metoprolol tartrate 50mg tablet PO ONE ×2 (03:20→22:50)
[2021-09-18] MEDS: acetaminophen 325mg tablet PO PRN ×2 (03:40→14:12)
[2021-09-18] MEDS ORDERED: potassium Cl 20 mEq SR tablet PO PRN ×2 (03:55)
[2021-09-18] MEDS ORDERED: potassium CL 10mEq/100ml bag 100 ML IV PRN (03:55)
[2021-09-18] MEDS ORDERED: magnesium 4gm in 100ml NS 100 ML IV PRN (03:55)
[2021-09-18] MEDS ORDERED: magnesium Cl slow-release 64mg tablet PO PRN (03:55)
[2021-09-18] MEDS: dextrose 5%-water 1,000 ML IV SCH (04:45)
--- NOTE | 2021-09-18 06:56 | NUR ---
Problems reprioritized. Patient report given, questions answered & plan of care reviewed with TRU Díaz.
[2021-09-18] MEDS: folic acid 1mg tablet PO SCH (07:49)
[2021-09-18] MEDS: thiamine 100mg tablet PO SCH (07:49)
[2021-09-18] MEDS: heparin, porcine 5000 units/ml vial SQ SCH ×2 (07:49→20:33)
[2021-09-18] MEDS: docusate sod 100mg capsule PO SCH ×2 (07:49→20:34)
[2021-09-18] MEDS: carVEDilol 12.5mg tablet PO SCH ×2 (07:49→17:03)
[2021-09-18] MEDS: CefTRIAXone/D5W-Rocephin 1gm 50 ML IV SCH (07:50)
[2021-09-18] MEDS: pantoprazole 40MG/NS 100ML BAG 100 ML IV SCH (07:51)
[2021-09-18] MEDS: lactose-reduced food (Ensure Enlive) - 237ml bottle PO SCH ×3 (07:51→14:00)
[2021-09-18] MEDS: linezolid 600mg tablet PO SCH ×2 (07:53→20:34)
[2021-09-18] MEDS: magnesium Cl slow-release 64mg tablet PO SCH ×2 (07:53→20:32)
[2021-09-18] MEDS: nicotine 7mg patch - 24hr TD SCH (07:56)
[2021-09-18] MEDS: K and/or MAG REPLACEMENT MC SCH ×2 (07:59→20:00)
[2021-09-18 08:12] LABS: MAGNESIUM 1.7 MG/DL (1.5-2.4); POTASSIUM 3.6 MMOL/L (3.5-5.1)
[2021-09-18] MEDS: potassium Cl 20 mEq SR tablet PO SCH ×2 (08:21→17:03)
[2021-09-18] MEDS: calcium carbonate/vitamin D3 tablet PO SCH ×3 (08:22→17:03)
[2021-09-18] MEDS: DESVENLAFAXINE SUCCINATE 25 MG PO SCH (08:22)
[2021-09-18] MEDS: metroNIDAZOLE 500mg tablet PO SCH ×2 (13:00→20:32)
--- NOTE | 2021-09-18 16:18 | NUR ---
Reassessment: Pt PO intake has slightly declined w/ ~25% avg of soft to chew meals and 55% avg Ensure Enlive ONS, meeting ~67% of estimated energy needs and 75% of estimated protein needs. Pt continues w/ encephalopathy though is improving per MD note. Hopeful that PO intake will improve w/ improvement of mentation. Pt A&O x 2, needing feeder w/ meals per documentation. LBM 09/17, documented w/ diarrhea, likely related to routine lactulose. No change to recommendations at this time, will continue to monitor. Recommendations: 1. Continue EC7 per ST recs 2. Ensure Enlive TIDWM 3. Encourage PO intake 4. Routine bowel care 5. Weekly scaled wt 6. IF PO intake declines, consider nutrition support if medically appropriate and within POC 7. Low tyramine diet education by MATTI once patient appropriate Addendum: 09/18/21 at [address] Amended: Links added. Addendum: 09/18/21 at [address] I have reviewed and agree with note by Editor MapAndrew Gilbert RD
[2021-09-19 02:00] VITALS: BP 125/77
[2021-09-19] MEDS: lactulose 20gm/30ml cup PO SCH ×4 (02:38→19:48)
[2021-09-19] MEDS: ipratropium/albuterol 3ml nebule NEB SCH ×4 (03:30→20:01)
--- NOTE | 2021-09-19 03:37 | NUR ---
Patient had an elevated heart rate between 165 -172 beats per minute around 8pm last night. The MD notified and metoprolol 50 mg po ordered. The blood pressure is within normal limits. Patient stable
[2021-09-19 06:00] VITALS: BP 110/72
[2021-09-19 07:24] LABS: MAGNESIUM 1.7 MG/DL (1.5-2.4); POTASSIUM 3.9 MMOL/L (3.5-5.1)
[2021-09-19] MEDS: lactose-reduced food (Ensure Enlive) - 237ml bottle PO SCH ×3 (08:00→18:00)
[2021-09-19] MEDS: linezolid 600mg tablet PO SCH ×3 (08:00→19:58)
[2021-09-19] MEDS: DESVENLAFAXINE SUCCINATE 25 MG PO SCH (08:00)
[2021-09-19] MEDS: carVEDilol 12.5mg tablet PO SCH ×2 (08:12→16:47)
[2021-09-19] MEDS: nicotine 7mg patch - 24hr TD SCH ×2 (08:14→08:29)
[2021-09-19] MEDS: K and/or MAG REPLACEMENT MC SCH ×2 (08:17→19:06)
[2021-09-19] MEDS: docusate sod 100mg capsule PO SCH ×2 (08:19→19:52)
[2021-09-19] MEDS: folic acid 1mg tablet PO SCH (08:20)
[2021-09-19] MEDS: metroNIDAZOLE 500mg tablet PO SCH ×3 (08:20→20:05)
[2021-09-19] MEDS: magnesium Cl slow-release 64mg tablet PO SCH ×2 (08:21→19:49)
[2021-09-19] MEDS: thiamine 100mg tablet PO SCH (08:27)
[2021-09-19] MEDS: heparin, porcine 5000 units/ml vial SQ SCH ×2 (08:28→19:51)
[2021-09-19] MEDS: potassium Cl 20 mEq SR tablet PO SCH ×2 (08:28→16:47)
[2021-09-19] MEDS: calcium carbonate/vitamin D3 tablet PO SCH ×3 (08:29→16:47)
[2021-09-19 09:02] LABS: BASOPHILS % (AUTO) 0.3 % (0-1); EOSINOPHILS # (AUTO) 0.5 X10'3 (0-0.9); EOSINOPHILS % (AUTO) 2.4 % (0-6); HEMATOCRIT 30.4 % (35.0-45.0); HEMOGLOBIN 9.7 g/dl (12.0-16.0); LYMPHOCYTES # (AUTO) 3.5 X10'3 (1.1-4.8); LYMPHOCYTES % (AUTO) 18.1 % (21-51); MEAN CORPUSCULAR HEMOGLOBIN 32.2 PG (27.0-31.0); MEAN CORPUSCULAR VOLUME 100.5 FL (78-98); MEAN PLATELET VOLUME 10.3 FL (7.4-10.4); MONOCYTES # (AUTO) 0.9 X10'3 (0-0.9); MONOCYTES % (AUTO) 4.5 % (2-12); NEUTROPHILS # (AUTO) 14.5 X10'3 (1.8-7.7); NEUTROPHILS % (AUTO) 74.7 % (42-75); PLATELET COUNT 317 X10'3 (140-440); RED BLOOD COUNT 3.02 X10'6 (4.20-5.60); RED CELL DISTRIBUTION WIDTH 16.5 % (11.5-14.5); WHITE BLOOD COUNT 19.4 X10'3 (4.5-11.0)
[2021-09-19 09:28] LABS: ALANINE AMINOTRANSFERASE 17 U/L (12-78); ALBUMIN 1.8 G/DL (3.4-5.0); ALBUMIN/GLOBULIN RATIO 0.5 (1.1-1.5); ALKALINE PHOSPHATASE 332 IU/L (46-116); ANION GAP 8 (8-16); ASPARTATE AMINO TRANSFERASE 46 U/L (10-37); BILIRUBIN,TOTAL 0.5 MG/DL (0.1-1.0); BLOOD UREA NITROGEN 10 MG/DL (7-18); BUN/CREATININE RATIO 10.1 (6.6-38.0); CHLORIDE 111 MMOL/L (99-107); CREATININE 0.99 MG/DL (0.40-0.90); GLUCOSE 107 MG/DL (70-104); POTASSIUM 3.9 MMOL/L (3.5-5.1); SODIUM 147 MMOL/L (135-145); TOTAL CARBON DIOXIDE 28.1 MMOL/L (24-32); TOTAL PROTEIN 5.7 G/DL (6.4-8.2); eGFR 58 ML/MIN
[2021-09-19 11:00] VITALS: BP 119/83
[2021-09-19 15:00] VITALS: BP_SYST 171; BP_SYST 86; BP_DIAS 49; BP_DIAS 61
[2021-09-19 18:00] VITALS: BP 92/57
--- NOTE | 2021-09-19 18:18 | NUR ---
Gave reported to Kristen Cuevas. I answered all her questions.
[2021-09-19] MEDS: acetaminophen 325mg tablet PO PRN (21:56)
[2021-09-19 22:00] VITALS: BP 90/56
[2021-09-20] MEDS: lactulose 20gm/30ml cup PO SCH ×3 (02:00→20:01)
[2021-09-20 03:00] VITALS: BP 99/58
[2021-09-20] MEDS: ipratropium/albuterol 3ml nebule NEB SCH ×4 (03:16→19:53)
[2021-09-20 06:00] VITALS: BP 113/74
[2021-09-20 07:56] LABS: BASOPHILS # (AUTO) 0.2 X10'3 (0-0.2); BASOPHILS % (AUTO) 1.3 % (0-1); EOSINOPHILS # (AUTO) 0.6 X10'3 (0-0.9); EOSINOPHILS % (AUTO) 4.9 % (0-6); HEMATOCRIT 28.6 % (35.0-45.0); HEMOGLOBIN 9.1 g/dl (12.0-16.0); LYMPHOCYTES % (AUTO) 16.8 % (21-51); MEAN CORPUSCULAR HEMOGLOBIN 32.4 PG (27.0-31.0); MEAN CORPUSCULAR HGB CONC 31.9 g/dL (33.0-36.5); MEAN CORPUSCULAR VOLUME 101.5 FL (78-98); MEAN PLATELET VOLUME 10.3 FL (7.4-10.4); MONOCYTES # (AUTO) 0.7 X10'3 (0-0.9); NEUTROPHILS # (AUTO) 8.6 X10'3 (1.8-7.7); PLATELET COUNT 263 X10'3 (140-440); RED BLOOD COUNT 2.82 X10'6 (4.20-5.60); RED CELL DISTRIBUTION WIDTH 17.1 % (11.5-14.5); WHITE BLOOD COUNT 12.1 X10'3 (4.5-11.0)
[2021-09-20] MEDS: K and/or MAG REPLACEMENT MC SCH ×2 (08:00→20:00)
[2021-09-20] MEDS: lactose-reduced food (Ensure Enlive) - 237ml bottle PO SCH ×5 (08:00→19:12)
[2021-09-20] MEDS: docusate sod 100mg capsule PO SCH ×2 (08:00→20:00)
[2021-09-20] MEDS: thiamine 100mg tablet PO SCH (08:40)
[2021-09-20] MEDS: metroNIDAZOLE 500mg tablet PO SCH ×3 (08:40→20:00)
[2021-09-20] MEDS: calcium carbonate/vitamin D3 tablet PO SCH ×4 (08:40→17:00)
[2021-09-20] MEDS: magnesium Cl slow-release 64mg tablet PO SCH ×2 (08:41→20:00)
[2021-09-20] MEDS: folic acid 1mg tablet PO SCH (08:41)
[2021-09-20] MEDS: heparin, porcine 5000 units/ml vial SQ SCH ×2 (08:43→20:04)
[2021-09-20] MEDS: DESVENLAFAXINE SUCCINATE 25 MG PO SCH (08:43)
[2021-09-20] MEDS: carVEDilol 12.5mg tablet PO SCH ×2 (08:46→17:00)
[2021-09-20] MEDS: nicotine 7mg patch - 24hr TD SCH (09:40)
[2021-09-20] MEDS ORDERED: nicotine 7mg patch - 24hr TD ONE (09:40)
[2021-09-20] MEDS: potassium Cl 20 mEq SR tablet PO SCH ×2 (09:40→17:00)
[2021-09-20 11:08] VITALS: BP 121/70
[2021-09-20] MEDS ORDERED: iohexol 350MG/ML 100ml bottle IV ONE (12:10)
[2021-09-20 15:00] VITALS: BP 110/77
[2021-09-20 18:00] VITALS: BP 96/54
--- NOTE | 2021-09-20 18:18 | NUR ---
Problems reprioritized. Patient report given, questions answered & plan of care reviewed with Kristen OTT.
[2021-09-20] MEDS: linezolid 600mg tablet PO SCH (20:00)
[2021-09-20 22:00] VITALS: BP 113/66
[2021-09-21 02:00] VITALS: BP 107/82
[2021-09-21] MEDS: ipratropium/albuterol 3ml nebule NEB SCH ×3 (02:29→15:34)
[2021-09-21 06:00] VITALS: BP 126/81
[2021-09-21 07:20] LABS: TRIGLYCERIDES 316 MG/DL (20-135)
[2021-09-21] MEDS: docusate sod 100mg capsule PO SCH (08:00)
[2021-09-21] MEDS: K and/or MAG REPLACEMENT MC SCH (08:00)
[2021-09-21] MEDS: lactulose 20gm/30ml cup PO SCH ×2 (08:00→08:59)
[2021-09-21] MEDS ORDERED: furosemide 20 MG/2 ML vial IV SCH (08:15)
[2021-09-21] MEDS: DESVENLAFAXINE SUCCINATE 25 MG PO SCH (09:00)
[2021-09-21] MEDS: thiamine 100mg tablet PO SCH (09:01)
[2021-09-21] MEDS: calcium carbonate/vitamin D3 tablet PO SCH ×2 (09:01→12:58)
[2021-09-21] MEDS: nicotine 7mg patch - 24hr TD SCH (09:03)
[2021-09-21] MEDS: heparin, porcine 5000 units/ml vial SQ SCH (09:04)
[2021-09-21] MEDS: folic acid 1mg tablet PO SCH (09:04)
[2021-09-21] MEDS: magnesium Cl slow-release 64mg tablet PO SCH (09:04)
[2021-09-21] MEDS: carVEDilol 12.5mg tablet PO SCH (09:11)
[2021-09-21] MEDS: potassium Cl 20 mEq SR tablet PO SCH (09:11)
[2021-09-21] MEDS: linezolid 600mg tablet PO SCH (09:15)
[2021-09-21 11:00] VITALS: BP 104/50
--- NOTE | 2021-09-21 11:17 | NUR ---
PAGER ID: [phone] MESSAGE: [phone] Anusha Fontaine- Wound nurse requests oral antifungal. Ashley [id number]
[2021-09-21 12:00] VITALS: BP 104/50
--- NOTE | 2021-09-21 15:57 | NUR ---
Patient transferred to [facility] via [facility]. PIV removed x2 with catheter intact. Telemetry removed. All belongings sent home with . Report called to nurse Stratton from [facility]. Addendum: 09/21/21 at 1600 by Ashley Dumont RN Attempted to take photos of redness to bottom and groin upon discharge but patient was being combative by yelling and hitting.
== END 2021-09-21 15:53 | DRG 871 ==
LOC: ER 11:14 → ED HOLD 14:39 → EDBEDREQ 17:07 → PCU 3S 17:47 → ED HOLD 20:52 → ICU 2S 21:20 → PCU 3S 09-09 17:29
PROVIDERS: ADMIT Family Medicine; ATTEND Family Medicine
PROC: 5A1935Z Respiratory Ventilation, Less than 24 Consecutive Hours (ICD-10-PCS; principal; 2021-09-06)
PROC: 0BH17EZ Insertion of Endotracheal Airway into Trachea, Via Natural or Artificial Opening (ICD-10-PCS; 2021-09-06)
PROC: 5A12012 Performance of Cardiac Output, Single, Manual (ICD-10-PCS; 2021-09-06)
PROC: B32T1ZZ Computerized Tomography (CT Scan) of Left Pulmonary Artery using Low Osmolar Contrast (ICD-10-PCS; 2021-09-20)
PROC: B3201ZZ Computerized Tomography (CT Scan) of Thoracic Aorta using Low Osmolar Contrast (ICD-10-PCS; 2021-09-20)
PROC: B32S1ZZ Computerized Tomography (CT Scan) of Right Pulmonary Artery using Low Osmolar Contrast (ICD-10-PCS; 2021-09-20)
DX: A41.81 Sepsis due to Enterococcus (principal); I46.9 Cardiac arrest, cause unspecified; G93.41 Metabolic encephalopathy; I50.33 Acute on chronic diastolic (congestive) heart failure; N17.0 Acute kidney failure with tubular necrosis; E43 Unspecified severe protein-calorie malnutrition; J18.9 Pneumonia, unspecified organism; J96.01 Acute respiratory failure with hypoxia; E72.20 Disorder of urea cycle metabolism, unspecified; E87.0 Hyperosmolality and hypernatremia; N30.00 Acute cystitis without hematuria; J44.0 Chronic obstructive pulmonary disease with (acute) lower respiratory infection; E87.2 Acidosis; Z16.21 Resistance to vancomycin; M96.89 Other intraoperative and postprocedural complications and disorders of the musculoskeletal system; Z20.822 Contact with and (suspected) exposure to COVID-19; E78.00 Pure hypercholesterolemia, unspecified; E78.5 Hyperlipidemia, unspecified; E86.0 Dehydration; E87.6 Hypokalemia; I11.0 Hypertensive heart disease with heart failure; D64.9 Anemia, unspecified; F12.90 Cannabis use, unspecified, uncomplicated; G89.29 Other chronic pain; K76.9 Liver disease, unspecified; M19.90 Unspecified osteoarthritis, unspecified site; F10.20 Alcohol dependence, uncomplicated; K52.9 Noninfective gastroenteritis and colitis, unspecified; K70.10 Alcoholic hepatitis without ascites; K70.40 Alcoholic hepatic failure without coma; R00.0 Tachycardia, unspecified; M54.9 Dorsalgia, unspecified; F17.200 Nicotine dependence, unspecified, uncomplicated; B96.1 Klebsiella pneumoniae [K. pneumoniae] as the cause of diseases classified elsewhere; I34.0 Nonrheumatic mitral (valve) insufficiency; K76.0 Fatty (change of) liver, not elsewhere classified; M79.7 Fibromyalgia; Z79.899 Other long term (current) drug therapy; Z90.710 Acquired absence of both cervix and uterus; Z98.891 History of uterine scar from previous surgery; Z88.0 Allergy status to penicillin; Z88.1 Allergy status to other antibiotic agents; Z88.8 Allergy status to other drugs, medicaments and biological substances; Z98.51 Tubal ligation status; I95.9 Hypotension, unspecified; Z68.28 Body mass index [BMI] 28.0-28.9, adult; Y84.8 Other medical procedures as the cause of abnormal reaction of the patient, or of later complication, without mention of misadventure at the time of the procedure
CPT/HCPCS: 36415; 36600; 70450; 70551; 71045; 71275; 74176; 76700; 80053; 80061; 80202; 80305; 80320; 81001; 82140; 82330; 82803; 82948; 83036; 83605; 83690; 83735; 83880; 84100; 84132; 84145; 84443; 84478; 84484; 85007; 85018; 85025; 85610; 86703; 86705; 86706; 86709; 86803; 87040; 87070; 87077; 87081; 87088; 87186; 87340; 87635; 92508; 92616; 92950; 93005; 93306; 94002; 94003; 94640; 94760; 94799; 96361; 96365; 96368; 97110; 97162; 97530; 99285; C9113; C9803; G0378; J0171; J0461; J0610; J0696; J1644; J1940; J2020; J2060; J2270; J2704; J3370; J3411; J3475; J3480; J3490; J7030; J7040; J7042; J7050; J7070; J7120; P9047; Q0163; Q9967